=== PATIENT | female | born 1975 | race Caucasian/White ===

== ENCOUNTER 2016-09-22 23:54 | Emergency (ER) | payer OTHER ==
--- NOTE | 2016-09-23 00:24 | ED ---
General Adult HPI - General Chief complaint: Dizziness Stated complaint: feeling faint Time Seen by Provider: 09/23/16 00:23 Source: patient, RN notes reviewed, old records reviewed Mode of arrival: ambulatory Limitations: no limitations - History of Present Illness Initial comments: This is a 41-year-old female to the ER for evaluation of heart racing, flushed skin, palpitations, near syncope. Patient has history of atrial fibrillation, states is different from that event. She had 3 bouts of atrial ablation her life and often contracted either chemically or electrically. At this time patient is relatively symptomatically with some mild chest pain and soreness in the left side of her chest. No significant source of breath no recent diaphoresis cough or congestion. No new medications. No dietary changes weight loss, no recent travel history sick contacts or recent hospital admission. Patient was sitting at a restaurant and she became fifth to feel flushed and feeling her heart rate. - Related Data Home Medications Medication Instructions Recorded Confirmed No Known Home Medications [No 09/23/16 09/23/16 Known Home Medications] Allergies Allergy/AdvReac Type Severity Reaction Status Date / Time prednisone Allergy Rash/Hives Verified 09/23/16 00:07 Review of Systems ROS Statement: Those systems with pertinent positive or pertinent negative responses have been documented in the HPI. ROS Other: All systems not noted in ROS Statement are negative. Past Medical History Past Medical History: Atrial Fibrillation History of Any Multi-Drug Resistant Organisms: None Reported Past Surgical History: Hernia Repair, Hysterectomy, Tonsillectomy Past Psychological History: No Psychological Hx Reported Smoking Status: Current every day smoker Past Alcohol Use History: Occasional Past Drug Use History: None Reported General Exam Limitations: no limitations General appearance: alert, in no apparent distress Head exam: Present: atraumatic, normocephalic, normal inspection Eye exam: Present: normal appearance, PERRL, EOMI. Absent: scleral icterus, conjunctival injection, periorbital swelling ENT exam: Present: normal exam, mucous membranes moist Neck exam: Present: normal inspection. Absent: tenderness, meningismus, lymphadenopathy Respiratory exam: Present: normal lung sounds bilaterally. Absent: respiratory distress, wheezes, rales, rhonchi, stridor Cardiovascular Exam: Present: regular rate, normal rhythm, normal heart sounds. Absent: systolic murmur, diastolic murmur, rubs, gallop, clicks GI/Abdominal exam: Present: soft, normal bowel sounds. Absent: distended, tenderness, guarding, rebound, rigid Extremities exam: Present: normal inspection, full ROM, normal capillary refill. Absent: tenderness, pedal edema, joint swelling, calf tenderness Back exam: Present: normal inspection Neurological exam: Present: alert, oriented X3, CN II-XII intact Psychiatric exam: Present: normal affect, normal mood Skin exam: Present: warm, dry, intact, normal color. Absent: rash Course Vital Signs 09/23/16 00:03 Temperature 98.4 F Pulse Rate 82 Respiratory 18 Rate Blood Pressure 126/70 O2 Sat by Pulse 99 Oximetry - Reevaluation(s) Reevaluation #1: 09/23/16 02:41 Patient denies significant chest pain or shortness of breath at this time and throughout majority of ER stay. Patient does feel anxious about will cause the symptoms EKG Findings - EKG Comments: EKG Findings:: EKG shows normal sinus rhythm rate of 86, VT 150, QRS 84, QTC 4: 30 Medical Decision Making - Medical Decision Making 41 female here with palpitations. Palpitations and then feeling soreness in her chest. Patient without chest pain or shortness of breath no diaphoresis no cardiac risk factors no hypertension or cholesterol no diabetes nonsmoker history of A. fib, EKG is normal rhythm strip is been normal throughout stay. Patient is no chest pain at this point, EKG is normal and troponin is negative - Lab Data Result diagrams: 09/23/16 00:20 09/23/16 00:20 Lab Results 09/23/16 09/23/16 09/23/16 Range/Units 00:20 00:20 00:20 WBC 13.8 H (3.8-10.6) k/uL RBC 4.44 (3.80-5.40) m/uL Hgb 13.9 (11.4-16.0) gm/dL Hct 41.5 (34.0-46.0) % MCV 93.4 (80.0-100.0) fL MCH 31.4 (25.0-35.0) pg MCHC 33.6 (31.0-37.0) g/dL RDW 13.0 (11.5-15.5) % Plt Count 249 (150-450) k/uL Neutrophils % 71 % Lymphocytes % 18 % Monocytes % 5 % Eosinophils % 4 % Basophils % 1 % Neutrophils # 9.8 H (1.3-7.7) k/uL Lymphocytes # 2.4 (1.0-4.8) k/uL Monocytes # 0.7 (0-1.0) k/uL Eosinophils # 0.5 (0-0.7) k/uL Basophils # 0.1 (0-0.2) k/uL PT (9.0-12.0) sec INR (<1.1) APTT (22.0-30.0) sec Sodium 140 (137-145) mmol/L Potassium 4.3 (3.5-5.1) mmol/L Chloride 107 (98-107) mmol/L Carbon Dioxide 20 L (22-30) mmol/L Anion Gap 13 mmol/L BUN 15 (7-17) mg/dL Creatinine 0.70 (0.52-1.04) mg/dL Est GFR (MDRD) Af Amer >60 (>60 ml/min/1.73 sqM) Est GFR (MDRD) Non-Af >60 (>60 ml/min/1.73 sqM) Glucose 107 H (74-99) mg/dL Calcium 10.1 (8.4-10.2) mg/dL Magnesium 1.9 (1.6-2.3) mg/dL Total Bilirubin 0.4 (0.2-1.3) mg/dL AST 23 (14-36) U/L ALT 31 (9-52) U/L Alkaline Phosphatase 67 (38-126) U/L Total Creatine Kinase 87 (30-135) U/L CK-MB (CK-2) 0.5 (0.0-2.4) ng/mL CK-MB (CK-2) Rel Index 0.6 Troponin I <0.012 (0.000-0.034) ng/mL Total Protein 7.8 (6.3-8.2) g/dL Albumin 4.4 (3.5-5.0) g/dL TSH 2.270 (0.465-4.680) mIU/L Urine Color Urine Appearance (Clear) Urine pH (5.0-8.0) Ur Specific [place] (1.001-1.035) Urine Protein (Negative) Urine Glucose (UA) (Negative) Urine Ketones (Negative) Urine Blood (Negative) Urine Nitrite (Negative) Urine Bilirubin (Negative) Urine Urobilinogen (<2.0) mg/dL Ur Leukocyte Esterase (Negative) Urine RBC (0-5) /hpf Urine WBC (0-5) /hpf Ur Squamous Epith Cells (0-4) /hpf Urine Mucus (None) /hpf Urine Opiates Screen (NotDetected) Ur Oxycodone Screen (NotDetected) Urine Methadone Screen (NotDetected) Ur Propoxyphene Screen (NotDetected) Ur Barbiturates Screen (NotDetected) U Tricyclic Antidepress (NotDetected) Ur Phencyclidine Scrn (NotDetected) Ur Amphetamines Screen (NotDetected) U Methamphetamines Scrn (NotDetected) U Benzodiazepines Scrn (NotDetected) Urine Cocaine Screen (NotDetected) U Marijuana (THC) Screen (NotDetected) 09/23/16 09/23/16 Range/Units 00:20 00:52 WBC (3.8-10.6) k/uL RBC (3.80-5.40) m/uL Hgb (11.4-16.0) gm/dL Hct (34.0-46.0) % MCV (80.0-100.0) fL MCH (25.0-35.0) pg MCHC (31.0-37.0) g/dL RDW (11.5-15.5) % Plt Count (150-450) k/uL Neutrophils % % Lymphocytes % % Monocytes % % Eosinophils % % Basophils % % Neutrophils # (1.3-7.7) k/uL Lymphocytes # (1.0-4.8) k/uL Monocytes # (0-1.0) k/uL Eosinophils # (0-0.7) k/uL Basophils # (0-0.2) k/uL PT 10.0 (9.0-12.0) sec INR 1.0 (<1.1) APTT 24.8 (22.0-30.0) sec Sodium (137-145) mmol/L Potassium (3.5-5.1) mmol/L Chloride (98-107) mmol/L Carbon Dioxide (22-30) mmol/L Anion Gap mmol/L BUN (7-17) mg/dL Creatinine (0.52-1.04) mg/dL Est GFR (MDRD) Af Amer (>60 ml/min/1.73 sqM) Est GFR (MDRD) Non-Af (>60 ml/min/1.73 sqM) Glucose (74-99) mg/dL Calcium (8.4-10.2) mg/dL Magnesium (1.6-2.3) mg/dL Total Bilirubin (0.2-1.3) mg/dL AST (14-36) U/L ALT (9-52) U/L Alkaline Phosphatase (38-126) U/L Total Creatine Kinase (30-135) U/L CK-MB (CK-2) (0.0-2.4) ng/mL CK-MB (CK-2) Rel Index Troponin I (0.000-0.034) ng/mL Total Protein (6.3-8.2) g/dL Albumin (3.5-5.0) g/dL TSH (0.465-4.680) mIU/L Urine Color Yellow Urine Appearance Cloudy H (Clear) Urine pH 5.5 (5.0-8.0) Ur Specific [place] 1.030 (1.001-1.035) Urine Protein 1+ H (Negative) Urine Glucose (UA) Negative (Negative) Urine Ketones Trace H (Negative) Urine Blood Trace H (Negative) Urine Nitrite Negative (Negative) Urine Bilirubin Negative (Negative) Urine Urobilinogen <2.0 (<2.0) mg/dL Ur Leukocyte Esterase Negative (Negative) Urine RBC 2 (0-5) /hpf Urine WBC 4 (0-5) /hpf Ur Squamous Epith Cells 7 H (0-4) /hpf Urine Mucus Many H (None) /hpf Urine Opiates Screen Not Detected (NotDetected) Ur Oxycodone Screen Not Detected (NotDetected) Urine Methadone Screen Not Detected (NotDetected) Ur Propoxyphene Screen Not Detected (NotDetected) Ur Barbiturates Screen Not Detected (NotDetected) U Tricyclic Antidepress Detected H (NotDetected) Ur Phencyclidine Scrn Not Detected (NotDetected) Ur Amphetamines Screen Not Detected (NotDetected) U Methamphetamines Scrn Not Detected (NotDetected) U Benzodiazepines Scrn Not Detected (NotDetected) Urine Cocaine Screen Not Detected (NotDetected) U Marijuana (THC) Screen Not Detected (NotDetected) Disposition Clinical Impression: Palpitations, Chest pain, Anxiety Disposition: HOME SELF-CARE Condition: Good Instructions: Palpitations (ED), Chest Pain (ED) Referrals: None,Stated [Primary Care Provider] - 1-2 days
[2016-09-23] MEDS ORDERED: SODIUM CHLORIDE 0.9% 500 ML IV STA (00:36)
[2016-09-23 01:14] LABS: Basophils # (A) 0.1 k/uL (0-0.2); Basophils % (A) 1 %; CH 31.1; CHCM 33.5; Eosinophils # (A) 0.5 k/uL (0-0.7); Eosinophils % (A) 4 %; HCT 41.5 % (34.0-46.0); HDW 2.41; HGB 13.9 gm/dL (11.4-16.0); Luc # (Auto) 0.21; Luc % (Auto) 2; Lymphocytes # (A) 2.4 k/uL (1.0-4.8); Lymphocytes % (A) 18 %; MCH 31.4 pg (25.0-35.0); MCHC 33.6 g/dL (31.0-37.0); MCV 93.4 fL (80.0-100.0); Mean Platelet Volume 8.4; Monocytes # (A) 0.7 k/uL (0-1.0); Monocytes % (A) 5 %; Neutrophils # (A) 9.8 k/uL (1.3-7.7); Neutrophils % (A) 71 %; RBC 4.44 m/uL (3.80-5.40); WBC 13.8 k/uL (3.8-10.6); WBC (Perox) 13.66
[2016-09-23 01:20] LABS: Appearance,Urine Cloudy (Clear); Bilirubin,Urine Negative (Negative); Glucose,Urine (UA) Negative (Negative); Ketones,Urine Trace (Negative); Leukocyte Esterase,Urine Negative (Negative); Mucus,Urine Many /hpf; Nitrite,Urine Negative (Negative); PH, Urine 5.5 (5.0-8.0); Particle Count 20239; Protein,Urine 1+ (Negative); RBC,Urine 2 /hpf (0-5); Squamous Epithelial Cell,Urine 7 /hpf (0-4); UA Billing (MACRO vs. MICRO) MICRO; Urobilinogen,Urine <2.0 mg/dL (<2.0); WBC,Urine 4 /hpf (0-5)
[2016-09-23 01:26] LABS: Partial Thromboplastin Time 24.8 sec (22.0-30.0)
[2016-09-23 01:29] LABS: ALT 31 U/L (9-52); AST 23 U/L (14-36); Alkaline Phosphatase 67 U/L (38-126); Anion Gap 13 mmol/L; Blood Urea Nitrogen 15 mg/dL (7-17); Calcium 10.1 mg/dL (8.4-10.2); Carbon Dioxide 20 mmol/L (22-30); Chloride 107 mmol/L (98-107); Glucose 107 mg/dL (74-99); Magnesium 1.9 mg/dL (1.6-2.3); Non-African American GFR(MDRD) >60 (>60 ml/min/1.73 sqM); Potassium 4.3 mmol/L (3.5-5.1); Sodium 140 mmol/L (137-145); Total Bilirubin 0.4 mg/dL (0.2-1.3); Total Protein 7.8 g/dL (6.3-8.2)
[2016-09-23 01:38] LABS: Creatine Kinase 87 U/L (30-135)
[2016-09-23 01:51] LABS: Creatine Kinase MB 0.5 ng/mL (0.0-2.4); Troponin I <0.012 ng/mL (0.000-0.034)
[2016-09-23] MEDS ORDERED: KETOROLAC 30 MG/ML 1 ML VIAL IVP STA (02:39)
[2016-09-23] MEDS ORDERED: LORazepam 1 MG TAB PO STA (02:39)
[2016-09-23 03:16] VITALS: BP 103/62; PULSE 76; RESP 16; TEMP 97.6
== END 2016-09-23 03:40 | disposition home or self-care (01) ==
LOC: EC 23:54
DX: R00.2 Palpitations (principal); R07.9 Chest pain, unspecified; F41.9 Anxiety disorder, unspecified; R55 Syncope and collapse; R42 Dizziness and giddiness; F17.200 Nicotine dependence, unspecified, uncomplicated; Z86.79 Personal history of other diseases of the circulatory system; Z88.8 Allergy status to other drugs, medicaments and biological substances; Z53.8 Procedure and treatment not carried out for other reasons
CPT/HCPCS: 36415; 80053; 80306; 81001; 82550; 82553; 83735; 84443; 84484; 85025; 85610; 85730; 93005; 96360; 96361; 99284

== ENCOUNTER 2016-09-29 11:20 | Inpatient (IN) | payer OTHER ==
[2016-09-29] MEDS ORDERED: SODIUM CHLORIDE 0.9% 1,000 ML IV STA (11:41)
[2016-09-29] MEDS ORDERED: DILTIAZEM 5 MG/ML 5 ML VIAL IVP STA (11:43)
--- NOTE | 2016-09-29 11:45 | ED ---
General Adult HPI - General Chief complaint: Arrhythmia/Palpitations Stated complaint: rapid heartrate Time Seen by Provider: 09/29/16 11:31 Source: patient, RN notes reviewed, old records reviewed Mode of arrival: ambulatory Limitations: no limitations - History of Present Illness Initial comments: This is a 41-year-old female ER for evaluation of palpitations heart racing shortness of breath. Patient states she does suffer from major fibrillation, states she had a similar episode of this earlier in the week. Denies chest pain , no new medications no change in medications no drugs or alcohol. Patient states she's been checked for thyroid disease and has all been normal. No recent fevers cough or congestion. Symptoms are today, and they have been pretty episodic. She is very symptomatic feeling her heart racing and beating hard in her chest. - Related Data Home Medications Medication Instructions Recorded Confirmed Cold Medication (Unknown Otc) 1 dose PO TID PRN 09/29/16 09/29/16 Mometasone Furoate [Nasonex Nasal 2 spr EA NOSTRIL HS 09/29/16 09/29/16 Altha] Allergies Allergy/AdvReac Type Severity Reaction Status Date / Time prednisone Allergy Rash/Hives Verified 09/29/16 11:46 Review of Systems ROS Statement: Those systems with pertinent positive or pertinent negative responses have been documented in the HPI. ROS Other: All systems not noted in ROS Statement are negative. Past Medical History Past Medical History: Atrial Fibrillation History of Any Multi-Drug Resistant Organisms: None Reported Past Surgical History: Hernia Repair, Hysterectomy, Tonsillectomy Past Psychological History: No Psychological Hx Reported Smoking Status: Current every day smoker Past Alcohol Use History: Occasional Past Drug Use History: None Reported General Exam Limitations: no limitations General appearance: alert, in no apparent distress, anxious Head exam: Present: atraumatic, normocephalic, normal inspection Eye exam: Present: normal appearance, PERRL, EOMI. Absent: scleral icterus, conjunctival injection, periorbital swelling ENT exam: Present: normal exam, mucous membranes moist Neck exam: Present: normal inspection. Absent: tenderness, meningismus, lymphadenopathy Respiratory exam: Present: normal lung sounds bilaterally. Absent: respiratory distress, wheezes, rales, rhonchi, stridor Cardiovascular Exam: Present: tachycardia, irregular rhythm, normal heart sounds. Absent: systolic murmur, diastolic murmur, rubs, gallop, clicks GI/Abdominal exam: Present: soft, normal bowel sounds. Absent: distended, tenderness, guarding, rebound, rigid Extremities exam: Present: normal inspection, full ROM, normal capillary refill. Absent: tenderness, pedal edema, joint swelling, calf tenderness Back exam: Present: normal inspection Neurological exam: Present: alert, oriented X3, CN II-XII intact Psychiatric exam: Present: normal affect, normal mood Skin exam: Present: warm, dry, intact, normal color. 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 fib with RVR rate 121 and QRS 82 QTC 434 Medical Decision Making - Medical Decision Making 41 female at the ER with history of atrial fibrillation, also ablations, now coming in with A. fib with RVR, second episode this week, patient is a chads score negative, will place on aspirin and admitted for rate control and cardiology evaluation - Lab Data Result diagrams: 09/29/16 11:47 Lab Results 09/29/16 Range/Units 11:47 WBC 8.2 (3.8-10.6) k/uL RBC 4.64 (3.80-5.40) m/uL Hgb 14.6 (11.4-16.0) gm/dL Hct 43.4 (34.0-46.0) % MCV 93.4 (80.0-100.0) fL MCH 31.6 (25.0-35.0) pg MCHC 33.8 (31.0-37.0) g/dL RDW 12.9 (11.5-15.5) % Plt Count 274 (150-450) k/uL Neutrophils % 51 % Lymphocytes % 36 % Monocytes % 4 % Eosinophils % 8 % Basophils % 1 % Neutrophils # 4.2 (1.3-7.7) k/uL Lymphocytes # 2.9 (1.0-4.8) k/uL Monocytes # 0.3 (0-1.0) k/uL Eosinophils # 0.6 (0-0.7) k/uL Basophils # 0.1 (0-0.2) k/uL Disposition Clinical Impression: Palpitations, Atrial fibrillation with RVR Disposition: ADMITTED IP TO THIS HOSP Condition: Fair Referrals: None,Stated [Primary Care Provider] - 1-2 days
[2016-09-29 12:04] LABS: Basophils # (A) 0.1 k/uL (0-0.2); Basophils % (A) 1 %; CH 31.5; CHCM 33.9; Eosinophils # (A) 0.6 k/uL (0-0.7); Eosinophils % (A) 8 %; HCT 43.4 % (34.0-46.0); HDW 2.41; HGB 14.6 gm/dL (11.4-16.0); Luc # (Auto) 0.15; Luc % (Auto) 2; Lymphocytes # (A) 2.9 k/uL (1.0-4.8); Lymphocytes % (A) 36 %; MCH 31.6 pg (25.0-35.0); MCHC 33.8 g/dL (31.0-37.0); MCV 93.4 fL (80.0-100.0); Monocytes # (A) 0.3 k/uL (0-1.0); Monocytes % (A) 4 %; Neutrophils # (A) 4.2 k/uL (1.3-7.7); Neutrophils % (A) 51 %; RBC 4.64 m/uL (3.80-5.40); RDW 12.9 % (11.5-15.5); WBC 8.2 k/uL (3.8-10.6); WBC (Perox) 7.82
[2016-09-29] MEDS ORDERED: ASPIRIN 81 MG CHEW PO STA (12:05)
[2016-09-29] MEDS ORDERED: NITROGLYCERIN SL TABS 0.4 MG TAB SUBLINGUAL PRN (12:05)
[2016-09-29] MEDS ORDERED: DILTIAZEM 125 MG in SODIUM CHLORIDE 0.9% 100 ML IV ONE (12:05)
[2016-09-29 12:10] LABS: Partial Thromboplastin Time 23.6 sec (22.0-30.0); Prothrombin Time 10.2 sec (9.0-12.0)
[2016-09-29 12:13] LABS: ALT 37 U/L (9-52); AST 21 U/L (14-36); Alkaline Phosphatase 60 U/L (38-126); Anion Gap 12 mmol/L; Blood Urea Nitrogen 11 mg/dL (7-17); Calcium 9.5 mg/dL (8.4-10.2); Carbon Dioxide 23 mmol/L (22-30); Chloride 107 mmol/L (98-107); Glucose 105 mg/dL (74-99); Magnesium 1.8 mg/dL (1.6-2.3); Non-African American GFR(MDRD) >60 (>60 ml/min/1.73 sqM); Phosphorous 3.4 mg/dL (2.5-4.5); Potassium 4.7 mmol/L (3.5-5.1); Sodium 142 mmol/L (137-145); Total Bilirubin 0.5 mg/dL (0.2-1.3); Total Protein 7.5 g/dL (6.3-8.2)
[2016-09-29 12:24] LABS: Creatine Kinase 62 U/L (30-135)
[2016-09-29 12:36] LABS: Creatine Kinase MB 0.4 ng/mL (0.0-2.4); Troponin I <0.012 ng/mL (0.000-0.034)
[2016-09-29] MEDS: SODIUM CHLORIDE 0.9% 1,000 ML IV SCH (13:39)
[2016-09-29] MEDS ORDERED: HEPARIN SODIUM,PORCINE 5,000 UNIT/ML 1 ML VIAL IV PRN (14:00)
[2016-09-29] MEDS ORDERED: HEPARIN SODIUM,PORCINE/D5W PMX 25,000 UNIT in DEXTROSE/WATER 1 500ML.BAG IV SCH (14:00)
[2016-09-29] MEDS ORDERED: HEPARIN SODIUM,PORCINE 5,000 UNIT/ML 1 ML VIAL IV ONE (14:00)
[2016-09-29 15:05] LABS: Prothrombin Time 10.5 sec (9.0-12.0)
[2016-09-29 17:59] LABS: Creatine Kinase 54 U/L (30-135)
[2016-09-29 18:11] LABS: Creatine Kinase MB 0.3 ng/mL (0.0-2.4); Troponin I <0.012 ng/mL (0.000-0.034)
--- NOTE | 2016-09-29 19:58 | HP ---
DATE OF ADMISSION: 09/29/2016 Patient is a 41-year-old who came in with complaints of palpitations, found to be in atrial fibrillation. Patient was having upper respiratory tract infections, because of which she took nasal decongestant, which she believes may have precipitated her atrial fibrillation; not sure whether the contents of the nasal decongestants are even anticholinergics or ( ) nasal decongestants like Sudafed or ( ) can cause rapid heart rate, which may have precipitated her symptoms. Patient denied any fever or chills. Patient denied any cough, runny nose, dysuria. Patient had a similar episode of paroxysmal atrial fibrillation in the past; did not required any rate control medications at that time. Patient apparently had a normal echocardiogram. Because of the low CHADs-VASC score of 1, patient was asked to take aspirin for stroke prevention. Patient denied any fever or chills, cough, runny nose. REVIEW OF SYSTEMS: CONSTITUTIONAL: No fever, no malaise, no fatigue. HEENT: No recent visual problems or hearing problems. Denied any sore throat. CARDIOVASCULAR: As described in HPI. PULMONARY: No shortness of breath, no cough, no hemoptysis. GASTROINTESTINAL: No diarrhea, no nausea, no vomiting, no abdominal pain. Normoactive bowel sounds. NEUROLOGICAL: No headaches, no weakness, no numbness. HEMATOLOGICAL: Denies any bleeding or petechiae. GENITOURINARY: Denies any burning micturition, frequency, or urgency. MUSCULOSKELETAL/RHEUMATOLOGICAL: Denies any joint pain, swelling, or any muscle pain. ENDOCRINE: Denies any polyuria or polydipsia. The rest of the 14 point review of systems is negative. Home medications include: 1. Mometasone furoate. 2. Cold medications, as mentioned above. ALLERGIES: PREDNISONE, apparently, which I do not believe is a real allergy. Past medical history is significant for: 1. Atrial fibrillation. 2. Paroxysmal atrial fibrillation in the past. 3. Hernia repair. 4. Hysterectomy. 5. Cholecystectomy. 6. Tonsillectomy. SOCIAL HISTORY: Patient does smoke. Denied any alcohol abuse or any drug abuse. FAMILY HISTORY: Denied any family history of hypertension, diabetes mellitus or coronary artery disease. PHYSICAL EXAMINATION: VITAL SIGNS: Temperature 97.6, pulse of 93, respiratory rate of 16. Blood pressure is 105/80. Saturating at 100% on room air. GENERAL: The patient is alert and oriented x3, not in any acute distress. Well developed, well nourished. HEENT: Pupils are round and equally reacting to light. EOMI. No scleral icterus. No conjunctival pallor. Normocephalic, atraumatic. No pharyngeal erythema. No thyromegaly. CARDIOVASCULAR: S1, S2 present. Irregularly irregular rhythm. No murmurs, rubs or gallops appreciated. PULMONARY: Chest is clear to auscultation, no wheezing or crackles. ABDOMEN: Soft, nontender, nondistended, normoactive bowel sounds. No palpable organomegaly. MUSCULOSKELETAL: No joint swelling or deformity. EXTREMITIES: No cyanosis, clubbing, or pedal edema. NEUROLOGICAL: Gross neurological examination did not reveal any focal deficits. SKIN: No rashes. LABORATORY DATA: CBC, CMP essentially within normal limits. ASSESSMENT AND PLAN: 1. Atrial fibrillation with rapid ventricular rate. Patient is at present rate-controlled with Cardizem IV and patient was also given a low dose of metoprolol, which is appropriate, and patient appears to have had normal ejection fraction in the past. I will repeat an echocardiogram. Patient's atrial fibrillation was probably precipitated by nasal decongestant. Antihistamines which have anticholinergic property can precipitate atrial fibrillation as well as nasal decongestants like Sudafed and ( ) can precipitate atrial fibrillation. No other signs or symptoms of infection were appreciated. Patient was started on anticoagulation with heparin. Onset of palpitations and symptoms was yesterday evening, which is over 24 hours. If she does not convert spontaneously, she is on heparin, probably will get a chance to cardiovert her. Patient has history of cardioversion in the past. 2. Rule out congestive heart failure. 3. Nicotine abuse. Counseling was provided. Patient long-term may just need aspirin for stroke prevention.
[2016-09-29] MEDS: METOPROLOL TARTRATE 50 MG TAB PO SCH (20:43)
[2016-09-30] MEDS: SODIUM CHLORIDE 0.9% 1,000 ML IV SCH ×2 (00:08→17:05)
[2016-09-30 00:59] LABS: Creatine Kinase 48 U/L (30-135)
[2016-09-30 01:13] LABS: Creatine Kinase MB <0.2 ng/mL (0.0-2.4); Troponin I <0.012 ng/mL (0.000-0.034)
[2016-09-30 06:38] LABS: Basophils # (A) 0.1 k/uL (0-0.2); Basophils % (A) 1 %; CH 31.5; CHCM 33.1; Eosinophils # (A) 0.5 k/uL (0-0.7); Eosinophils % (A) 7 %; HCT 38.3 % (34.0-46.0); HDW 2.35; HGB 12.2 gm/dL (11.4-16.0); Luc # (Auto) 0.13; Luc % (Auto) 2; Lymphocytes # (A) 3.4 k/uL (1.0-4.8); Lymphocytes % (A) 47 %; MCH 30.4 pg (25.0-35.0); MCHC 31.8 g/dL (31.0-37.0); MCV 95.7 fL (80.0-100.0); Mean Platelet Volume 7.8; Monocytes # (A) 0.3 k/uL (0-1.0); Monocytes % (A) 4 %; Neutrophils # (A) 2.8 k/uL (1.3-7.7); Neutrophils % (A) 39 %; RBC 4.01 m/uL (3.80-5.40); RDW 13.1 % (11.5-15.5); WBC 7.2 k/uL (3.8-10.6); WBC (Perox) 7.25
[2016-09-30 06:56] LABS: Cholesterol 146 mg/dL (<200); HDL Cholesterol 21 mg/dL (40-60)
[2016-09-30 07:12] LABS: Triglycerides 536 mg/dL (<150)
[2016-09-30] MEDS: METOPROLOL TARTRATE 50 MG TAB PO SCH ×2 (07:59→21:16)
[2016-09-30] MEDS ORDERED: ASPIRIN 325 MG TAB PO SCH (09:00)
--- NOTE | 2016-09-30 09:19 | ECHOF ---
Referral Reason:A. Fib MEASUREMENTS -------- HEIGHT: 180.3 cm WEIGHT: 108.0 kg BP: 119/77 IVSd: 1.3 cm (0.6 - 1.1) LVIDd: 3.9 cm (3.9 - 5.3) LVPWd: 1.6 cm (0.6 - 1.1) IVSs: 1.8 cm LVIDs: 2.6 cm LVPWs: 2.2 cm LAESV Index (A-L): 19.01 ml/m Ao Diam: 3.3 cm (2.0 - 3.7) AV Cusp: 2.2 cm (1.5 - 2.6) LA Diam: 3.5 cm (2.7 - 3.8) RAP: 5.00 mmHg RVSP: 23.65 mmHg FINDINGS -------- Atrial fibrillation. This was a technically adequate study. There is moderate concentric left ventricular hypertrophy. Overall left ventricular systolic function is normal with, an EF between 55 - 60 %. The right ventricle is normal in size and function. The left atrium is normal in size. The right atrium is normal in size. The aortic valve is trileaflet, and appears structurally normal. No aortic stenosis or regurgitation. The mitral valve leaflets are mildly thickened. Mild mitral regurgitation is present. Mild tricuspid regurgitation present. The right ventricular systolic pressure, as measured by Doppler, is 23.65mmHg. Pulmonic valve appears structurally normal. The aortic root size is normal. The pericardium is normal. CONCLUSIONS -------- 1. Atrial fibrillation. 2. Mild mitral regurgitation is present. 3. Mild tricuspid regurgitation present. 4. The right ventricular systolic pressure, as measured by Doppler, is 23.65mmHg. 5. Pulmonic valve appears structurally normal. 6. The aortic root size is normal. 7. The pericardium is normal. 8. This was a technically adequate study. 9. There is moderate concentric left ventricular hypertrophy. 10. Overall left ventricular systolic function is normal with, an EF between 55 - 60 %. 11. The right ventricle is normal in size and function. 12. The left atrium is normal in size. 13. The right atrium is normal in size. 14. The aortic valve is trileaflet, and appears structurally normal. No aortic stenosis or regurgitation. 15. The mitral valve leaflets are mildly thickened. [employer] RESERVES: Blanche Damon RDCS
--- NOTE | 2016-09-30 09:23 | P.CRDCN ---
<Gricel Tabor E - Last Filed: 09/30/16 09:10> History of Present Illness Consult date: 09/30/16 Requesting physician: Marco Harmon Consult reason: atrial fibrillation Chief complaint: Palpitations History of present illness: This is a 41-year-old female with history of paroxysmal atrial fibrillation, cardiac risk factors negative for hypertension, no diabetes, no hyperlipidemia, she does smoke cigarettes, rarely drinks alcohol, no caffeine. She presents to the hospital with symptoms of palpitations and feeling her heart racing. The patient was in the hospital one week ago with symptoms of palpitations, however on arrival they seemed to dissipate and she was in normal sinus rhythm. On this admission EKG shows A. fib with a rapid ventricular response. Patient remains in atrial fibrillation, rate in the 70s this morning. Currently on Cardizem drip at 5 along with a heparin drip. Patient was also initiated on metoprolol tartrate 50 twice a day in the emergency room. Blood pressure on arrival 140/80 with a heart rate of 130. The pressure this morning 118/70. According to the patient, she has had upper respiratory issues and congestion for the past one week or so and has been taking cold medication at home. She states that the last episode of atrial fibrillation she had was approximately one year ago, she was at [facility] at that time, seen by Dr. Barlow. She had also been taking cold medication at that time prior to her admission there. Patient did undergo cardioversion at that time. She did not follow-up in the cardiology office. Laboratory data, CBC normal, potassium 4.7, BUN 11, creatinine 0.6. Troponins have been negative 3. TSH 1.7. Cholesterol 146, triglycerides 536, HDL 21. Past Medical History Past Medical History: Atrial Fibrillation Additional Past Medical History / Comment(s): Paroxysmal Afib, pt has a had cold and has been using cold medications. History of Any Multi-Drug Resistant Organisms: None Reported Past Surgical History: Hernia Repair, Hysterectomy, Tonsillectomy Additional Past Surgical History / Comment(s): R inguinal hernia repair Past Anesthesia/Blood Transfusion Reactions: Postoperative Nausea & Vomiting ( PONV) Additional Past Anesthesia/Blood Transfusion Reaction / Comment(s): Pt received blood with her hysterectomy Past Psychological History: Anxiety Additional Psychological History / Comment(s): Pt resides with her spouse and 2 children-one is 14 yrs old and one is 21yrs old. She is independent. Smoking Status: Current every day smoker Past Alcohol Use History: Rare Additional Past Alcohol Use History / Comment(s): Pt started smoking in 1992 and is less than a ppd smoker. Past Drug Use History: None Reported - Past Family History Father Family Medical History: No Reported History Additional Family Medical History / Comment(s): Healthy Mother Family Medical History: No Reported History Additional Family Medical History / Comment(s): Healthy Medications and Allergies Home Medications Medication Instructions Recorded Confirmed Type Cold Medication (Unknown Otc) 1 dose PO TID PRN 09/29/16 09/29/16 History Mometasone Furoate [Nasonex Nasal 2 spr EA NOSTRIL HS 09/29/16 09/29/16 History Bronson] Allergies Allergy/AdvReac Type Severity Reaction Status Date / Time prednisone Allergy Rash/Hives Verified 09/29/16 11:46 Physical Exam Vitals: Vital Signs Temp Pulse Pulse Resp BP BP Pulse Ox 09/30/16 08:00 97.5 F L 82 16 118/72 100 09/30/16 03:53 67 09/30/16 03:51 97.8 F 67 16 97/58 97 09/30/16 00:00 66 16 107/67 94 L 09/29/16 20:00 80 16 114/80 98 09/29/16 17:00 87 16 09/29/16 14:49 97.6 F 87 16 100/76 100 09/29/16 13:15 97.3 F L 85 16 119/77 99 09/29/16 12:55 93 18 105/80 98 09/29/16 12:45 76 18 103/85 97 09/29/16 12:26 80 16 108/72 99 Intake and Output 09/29/16 09/30/16 09/30/16 22:59 06:59 14:59 Intake Total 440 612.456 240 Balance 440 612.456 240 Intake: Intake, IV Titration 362.456 Amount Heparin Sodium,Porcine/ 362.456 D5w Pmx 25,000 unit In Dextrose/Water 1 500ml. bag @ 9.3 UNITS/KG/HR 20. 07 mls/hr IV .Q24H [facility] Rx #:[id number] Oral 440 250 240 Other: # Voids 1 Weight 108.6 kg PHYSICAL EXAMINATION: HEENT: Head is atraumatic, normocephalic. Pupils equal, round. Neck is supple. There is no elevated jugular venous pressure. HEART EXAMINATION: Heart S1 and S2 irregularly irregular CHEST EXAMINATION: Lungs are clear to auscultation and precussion. No chest wall tenderness is noted on palpation or with deep breathing. ABDOMEN: Soft, nontender. Bowel sounds are heard. No organomegaly noted. EXTREMITIES: 2+ peripheral pulses with no evidence of peripheral edema and no calf tenderness noted. NEUROLOGIC patient is awake, alert and oriented -3. . Results 09/30/16 06:18 09/29/16 11:47 Cardiac Enzymes 09/29/16 09/30/16 Range/Units 17:10 00:18 CK-MB (CK-2) 0.3 <0.2 (0.0-2.4) ng/mL Troponin I <0.012 <0.012 (0.000-0.034) ng/mL Coagulation 09/29/16 09/29/16 09/30/16 Range/Units 14:32 21:05 06:18 PT 10.5 (9.0-12.0) sec APTT 24.0 30.6 H 40.8 H (22.0-30.0) sec Lipids 09/30/16 Range/Units 06:18 Triglycerides 536 H (<150) mg/dL Cholesterol 146 (<200) mg/dL HDL Cholesterol 21 L (40-60) mg/dL CBC 09/30/16 Range/Units 06:18 WBC 7.2 (3.8-10.6) k/uL RBC 4.01 (3.80-5.40) m/uL Hgb 12.2 (11.4-16.0) gm/dL Hct 38.3 (34.0-46.0) % Plt Count 191 (150-450) k/uL Current Medications Generic Name Dose Route Start Last Admin Trade Name Freq PRN Reason Stop Dose Admin Aspirin 325 mg 09/30/16 09:00 09/30/16 07:59 Aspirin PO 325 mg DAILY SAURABH Administration Heparin Sodium (Porcine) 0 unit 09/29/16 14:00 Heparin IV PER PROTOCOL PRN Low PTT Protocol Diltiazem HCl 125 mg/ Sodium 125 mls @ 5 mls/hr 09/29/16 12:05 09/29/16 12:18 Chloride IV 09/30/16 12:04 5 mg/hr .Q24H ONE 5 mls/hr 5 MG/HR Administration Sodium Chloride 1,000 mls @ 100 mls/hr 09/29/16 12:15 09/30/16 00:08 Saline 0.9% IV Not Given .Q10H [facility] Heparin Sodium/Dextrose 25,000 500 mls @ 20.07 mls/hr 09/29/16 14:00 06:59 unit/ IV Solution IV 14.3 units/kg/hr .Q24H [facility] 30.87 mls/hr Protocol Titration 9.3 UNITS/KG/HR Metoprolol Tartrate 50 mg 09/29/16 21:00 09/30/16 07:59 Lopressor PO 50 mg BID SAURABH Administration Nitroglycerin 0.4 mg 09/29/16 12:05 Nitrostat SUBLINGUAL Q5M PRN Chest Pain Intake and Output 09/29/16 09/30/16 09/30/16 22:59 06:59 14:59 Intake Total 440 612.456 240 Balance 440 612.456 240 Intake: Intake, IV Titration 362.456 Amount Heparin Sodium,Porcine/ 362.456 D5w Pmx 25,000 unit In Dextrose/Water 1 500ml. bag @ 9.3 UNITS/KG/HR 20. 07 mls/hr IV .Q24H [facility] Rx #:[id number] Oral 440 250 240 Other: # Voids 1 Weight 108.6 kg 09/30/16 06:18 EKG Interpretations (text) Atrial fibrillation with rapid ventricular response Assessment and Plan Plan: Assessment and plan #1 atrial fibrillation with rapid ventricular response, paroxysmal. Currently on IV heparin and Cardizem drip. Tsh normal #2 history of paroxysmal atrial fibrillation #3 nicotine dependence Plan We will obtain an echocardiogram with Doppler study. Discontinue IV Cardizem and continue metoprolol tartrate. Further recommendations to follow. DNP note has been reviewed, I agree with a documented findings and plan of care. Patient was seen and examined. <Jay Wallace - Last Filed: 10/01/16 10:06> Physical Exam Vitals: Vital Signs Temp Pulse Resp BP Pulse Ox 10/01/16 08:00 77 18 131/62 97 10/01/16 04:00 97.4 F L 78 16 123/64 97 10/01/16 00:00 79 16 120/64 98 09/30/16 20:00 98 F 70 18 122/64 99 09/30/16 16:00 97.5 F L 62 18 111/72 99 09/30/16 11:52 97.4 F L 68 16 112/64 100 Intake and Output 09/30/16 10/01/16 10/01/16 22:59 06:59 14:59 Other: # Voids 1 1 # Bowel Movements 0 Weight 106.8 kg Results 10/01/16 05:47 09/29/16 11:47 Coagulation 09/30/16 Range/Units 12:44 APTT 53.6 H (22.0-30.0) sec CBC 10/01/16 Range/Units 05:47 WBC 7.5 (3.8-10.6) k/uL RBC 4.01 (3.80-5.40) m/uL Hgb 12.2 (11.4-16.0) gm/dL Hct 37.9 (34.0-46.0) % Plt Count 215 (150-450) k/uL Current Medications Generic Name Dose Route Start Last Admin Trade Name Freq PRN Reason Stop Dose Admin Apixaban 5 mg 09/30/16 10:15 10/01/16 08:07 Eliquis PO 5 mg BID SAURABH Administration Flecainide Acetate 100 mg 09/30/16 21:00 10/01/16 08:07 Tambocor PO 100 mg Q12HR [facility] Administration Metoprolol Tartrate 50 mg 09/29/16 21:00 10/01/16 08:07 Lopressor PO 50 mg BID SA[facility] Administration Nitroglycerin 0.4 mg 09/29/16 12:05 Nitrostat SUBLINGUAL Q5M PRN Chest Pain Zolpidem Tartrate 5 mg 09/30/16 22:26 09/30/16 23:26 Ambien PO 5 mg HS PRN Administration Insomnia Intake and Output 09/30/16 10/01/16 10/01/16 22:59 06:59 14:59 Other: # Voids 1 1 # Bowel Movements 0 Weight 106.8 kg 10/01/16 05:47
[2016-09-30] MEDS ORDERED: FLECAINIDE 50 MG TAB PO STA (10:07)
[2016-09-30] MEDS: APIXABAN 5 MG TAB PO SCH ×2 (10:26→21:16)
[2016-09-30] MEDS: FLECAINIDE 50 MG TAB PO SCH (21:15)
[2016-09-30] MEDS ORDERED: ZOLPIDEM 5 MG TAB PO PRN (22:26)
[2016-10-01 06:11] LABS: Basophils # (A) 0.1 k/uL (0-0.2); Basophils % (A) 1 %; CH 31.2; CHCM 33.3; Eosinophils # (A) 0.5 k/uL (0-0.7); Eosinophils % (A) 7 %; HCT 37.9 % (34.0-46.0); HGB 12.2 gm/dL (11.4-16.0); Luc # (Auto) 0.16; Luc % (Auto) 2; Lymphocytes # (A) 2.8 k/uL (1.0-4.8); Lymphocytes % (A) 37 %; MCH 30.3 pg (25.0-35.0); MCHC 32.2 g/dL (31.0-37.0); MCV 94.3 fL (80.0-100.0); Mean Platelet Volume 7.8; Monocytes # (A) 0.3 k/uL (0-1.0); Monocytes % (A) 4 %; Neutrophils # (A) 3.7 k/uL (1.3-7.7); Neutrophils % (A) 50 %; RBC 4.01 m/uL (3.80-5.40); RDW 12.7 % (11.5-15.5); WBC 7.5 k/uL (3.8-10.6); WBC (Perox) 7.74
[2016-10-01] MEDS: METOPROLOL TARTRATE 50 MG TAB PO SCH (08:07)
[2016-10-01] MEDS: FLECAINIDE 50 MG TAB PO SCH (08:07)
[2016-10-01] MEDS: APIXABAN 5 MG TAB PO SCH (08:07)
[2016-10-01] MEDS ORDERED: ASPIRIN 81 MG CHEW PO SCH (09:00)
[2016-10-01] MEDS ORDERED: LIDOCAINE 1% INJ 10MG/ML (20 ML MDV) ONE (10:01)
[2016-10-01] MEDS ORDERED: PROPOFOL 10 MG/ML 20 ML VIAL IV ONE (10:01)
--- NOTE | 2016-10-01 10:06 | P.PCN ---
Preoperative Diagnosis: Diagnosis Atrial fibrillation, recurrent, fourth recurrence, drug refractory Failed flecainide 200 mg followed by 100 mg twice a day Patient anticoagulated with heparin and then subsequently ELIQUIS 5 mg twice daily Onset of A. fib was within 24-48 hours of admission, symptomatic with shortness of breath dizziness and palpitations Procedure Electrical cardioversion Details 200 J biphasic shock, AP configuration, successful at the first attempt Sinus rhythm in the 70s Plan Twelve-lead ECG Continue flecainide 100 mg twice daily for about 1 week Continue metoprolol 25 mg twice daily for one week Continue ELIQUIS for 4 weeks, then may stop Outpatient sleep apnea assessment Weight reduction Twelve-lead ECG next week on flecainide I plan to start flecainide and metoprolol This is her fourth recurrence If she continues to have this and since she did not chemically convert with flecainide, I may consider cryoablation Anesthesia: MAC
--- NOTE | 2016-10-01 10:09 | P.PN ---
Progress Note - Text Patient interviewed and examined on September 30 please see the full dictation by Dr. ramirez Patient admitted with shortness of breath and palpitations and was found to be in atrial fibrillation with RVR She recently had a cold and took some cold medications This is her fourth recurrence, typical pattern Her first episode of atrial fibrillation was when she was about 29-30 years old Her grandmother had recurrent palpitations no other family member has had recurrent palpitations She denies diabetes hypertension dyslipidemia Sleep apnea assessment pending She is obese Denies any significant alcohol consumption Plan Chemical cardioversion with flecainide 200 mg followed by 100 mg twice a day Initiate ELIQUIS 5 mg twice daily and stop heparin later Once she weekly converts ELIQUIS must be continued for at least 1 month and then stop JAIMIE VASC score is 1 at this time
[2016-10-01] MEDS ORDERED: SODIUM CHLORIDE 0.9% 500 ML IV ONE (10:11)
[2016-10-01 10:15] VITALS: TEMP 98
[2016-10-01 10:32] VITALS: PULSE 67
[2016-10-01 11:22] VITALS: BP 106/60; RESP 18
--- NOTE | 2016-10-01 12:17 | DS ---
DATE OF ADMISSION: 09/29/2016 DATE OF DISCHARGE: Patient is a 41-year-old admitted to the hospital with atrial fibrillation with rapid ventricular rate which improved at this point of time. The patient was started on Flecainide and patient is still in A. fib but rate controlled at this point of time. Cardiology is recommending one more day of monitoring. REVIEW OF SYSTEMS: CARDIOVASCULAR: No chest pain, no orthopnea, no PND, no palpitations. PULMONARY: Denied any shortness of breath. No cough or hemoptysis. GASTROINTESTINAL: No diarrhea, nausea or vomiting. No abdominal pain. Normoactive bowel sounds. NEUROLOGIC: No headaches, no weakness, no numbness. Medications are reviewed. PHYSICAL EXAMINATION: Temperature 97.4, pulse of 68, respiratory rate of 16, blood pressure is 112/64. Saturating at 100% on room air. GENERAL: The patient is alert and oriented x3, not in any acute distress. Well developed, well nourished. HEENT: Pupils are round and equally reacting to light. EOMI. No scleral icterus. No conjunctival pallor. Normocephalic, atraumatic. No pharyngeal erythema. No thyromegaly. CARDIOVASCULAR: S1 and S2 present. Irregularly irregular rhythm. PULMONARY: Chest is clear to auscultation, no wheezing or crackles. ABDOMEN: Soft, nontender, nondistended, normoactive bowel sounds. No palpable organomegaly. MUSCULOSKELETAL: No joint swelling or deformity. EXTREMITIES: No cyanosis, clubbing, or pedal edema. NEUROLOGICAL: Gross neurological examination did not reveal any focal deficits. SKIN: No rashes. LABORATORY DATA: None available from today except for APTT which is 53.6. ASSESSMENT AND PLAN: 1. Atrial fibrillation, rate controlled not in sinus rhythm yet. If she does not convert on Flecainide, cardiology is planning on cardioversion tomorrow. 2. Nicotine abuse. Counseling was provided. 3. Rule out congestive heart failure. Patient is otherwise clinically doing well and patient atrial fibrillation was most probably precipitated by nasal decongestants.
--- NOTE | 2016-10-02 10:44 | DS ---
DATE OF ADMISSION: 09/29/2016 DATE OF DISCHARGE: 10/01/2016 Patient is a 41-year-old who came in for atrial fibrillation with rapid ventricular rate. Post nasal decongestant usage. Patient underwent chemical cardioversion. Patient will need one month of anticoagulation. Patient is being discharged. The patient is being discharged on Flecainide, metoprolol and patient will follow with Dr. Wallace as an outpatient for EP study and possible ablation. Patient was seen and examined on the day of discharge. Vitals are stable. PHYSICAL EXAMINATION: GENERAL: The patient is alert and oriented x3, not in any acute distress. Well developed, well nourished. HEENT: Pupils are round and equally reacting to light. EOMI. No scleral icterus. No conjunctival pallor. Normocephalic, atraumatic. No pharyngeal erythema. No thyromegaly. CARDIOVASCULAR: S1 and S2 present. No murmurs, rubs, or gallops. PULMONARY: Chest is clear to auscultation, no wheezing or crackles. ABDOMEN: Soft, nontender, nondistended, normoactive bowel sounds. No palpable organomegaly. MUSCULOSKELETAL: No joint swelling or deformity. EXTREMITIES: No cyanosis, clubbing, or pedal edema. NEUROLOGICAL: Gross neurological examination did not reveal any focal deficits. SKIN: No rashes. FINAL DIAGNOSIS(ES): 1. Atrial fibrillation, status post chemical cardioversion. 2. Nicotine abuse. 3. Rule out congestive heart failure. Patient will be discharged today in stable medical condition to home. The patient will follow with his primary care physician in 3 to 7 days and the patient will follow with Dr. Wallace as scheduled. Discharge diet: Cardiac. Spent greater than 35 minutes in total discharge process.
== END 2016-10-01 15:14 | disposition home or self-care (01) | DRG 310 ==
LOC: EC 11:20 → 6SEL 12:05
PROVIDERS: ADMIT Hospitalist; ATTEND Hospitalist
PROC: 5A2204Z Restoration of Cardiac Rhythm, Single (ICD-10-PCS; principal; 2016-10-01 09:23)
DX: I48.0 Paroxysmal atrial fibrillation (principal); I50.9 Heart failure, unspecified; E66.9 Obesity, unspecified; F17.200 Nicotine dependence, unspecified, uncomplicated; F41.9 Anxiety disorder, unspecified; Z68.31 Body mass index [BMI] 31.0-31.9, adult; Z88.8 Allergy status to other drugs, medicaments and biological substances
CPT/HCPCS: 36415; 80053; 80061; 82550; 82553; 83735; 84100; 84443; 84484; 85025; 85610; 85730; 92960; 93005; 93306; 96361; 96374; 99285

== ENCOUNTER → 2017-06-25 | Outpatient (CLI) | payer OTHER ==
[2017-06-25 12:41] LABS: Potassium 4.2 mmol/L (3.5-5.1)
== END | disposition home or self-care (01) ==
LOC: LABWHC1 12:10 → LABPAT 12:10
PROVIDERS: ATTEND Anesthesiology
DX: Z01.818 Encounter for other preprocedural examination (principal)
CPT/HCPCS: 36415; 80051

== ENCOUNTER 2017-06-29 09:30 | Inpatient (IN) | payer OTHER ==
[2017-06-21 16:41] VITALS: BMI 33.2
--- NOTE | 2017-06-28 12:38 | P.GSHP ---
History of Present Illness H&P Date: 06/28/17 Chief Complaint: Incisional hernia Patient seen in the office in mid April. She has a history of prior hysterectomy through a lower midline incision. Recently she has appreciated increased swelling in the right lower abdomen. This is been increasing over the last year or so. Mild pain at times. Denies nausea or vomiting. She also has a history of a previous open right hernia repair as a child. CAT scan showed multiple hernias through the lower midline scar site. Hernias present in the periumbilical and infraumbilical location. She also has an enlarging sebaceous cyst in the left midabdomen. No change in bowel habits despite the fact the bowel loops are present within the hernia. Past Medical History Past Medical History: Atrial Fibrillation, Thyroid Disorder Additional Past Medical History / Comment(s): Paroxysmal Afib., Varicose Veins, Hypothyroid, Incisional Hernia. History of Any Multi-Drug Resistant Organisms: None Reported Past Surgical History: Hernia Repair, Hysterectomy, Tonsillectomy Additional Past Surgical History / Comment(s): Right inguinal hernia repair, Cardioversion. Past Anesthesia/Blood Transfusion Reactions: Postoperative Nausea & Vomiting ( PONV) Additional Past Anesthesia/Blood Transfusion Reaction / Comment(s): Pt received blood with her hysterectomy- no reaction Past Psychological History: Anxiety Additional Psychological History / Comment(s): . Smoking Status: Former smoker Past Alcohol Use History: None Reported Additional Past Alcohol Use History / Comment(s): QUIT SMOKING 6 MONTHS AGO., STARTED SMOKING 1992 AND SMOKED ON AND OFF FOR 24 YEARS. SMOKED 1/2-1 PPD. Past Drug Use History: None Reported - Past Family History Father Family Medical History: No Reported History Additional Family Medical History / Comment(s): . Mother Family Medical History: No Reported History Additional Family Medical History / Comment(s): . Medications and Allergies Home Medications Medication Instructions Recorded Confirmed Type Ibuprofen [Motrin] 200 - 400 mg PO Q6HR PRN 06/21/17 06/21/17 History LORazepam [Ativan] 0.5 mg PO DAILY PRN 06/21/17 06/21/17 History Levothyroxine Sodium [Synthroid] 50 mcg PO DAILY 06/21/17 06/21/17 History Allergies Allergy/AdvReac Type Severity Reaction Status Date / Time prednisone Allergy Rash/Hives Verified 06/21/17 13:26 Surgical - Exam Physical exam: General: Well-developed, well-nourished HEENT: Normocephalic, sclerae nonicteric Abdomen: Nontender, nondistended, large hernia in the lower midline extending to the right lower quadrant, prior scars noted, periumbilical hernia nonpalpable Extremities: No edema Neuro: Alert and oriented Assessment and Plan (1) Incisional hernia Narrative/Plan: Will proceed with repair of large incisional hernia with mesh. Open approach was chosen because of the degree of fascial separation. Risks of bleeding, infection, recurrence, bladder and bowel injury, numbness, nerve injury, anesthesia related complications were discussed with the patient. The patient understands and wishes to proceed. Status: Acute Code(s): K43.2 - INCISIONAL HERNIA WITHOUT OBSTRUCTION OR GANGRENE SNOMED Code(s): 978562697
[~2017-06-29 09:30] MED LIST: HEPARIN SODIUM,PORCINE 5,000 UNIT/ML 1 ML VIAL SQ ONE; MIDAZOLAM 2 MG/2 ML VIAL IV PRN; MORPHINE SULFATE 4 MG/ML SYRINGE IV PRN; ONDANSETRON 4 MG/2 ML VIAL IVP ONE; SCOPOLAMINE 1.5MG/72HR PATCH TRANSDERM ONE; ceFAZolin IN SWFI 2 GM/20 ML SYRINGE IVP ONE
[2017-06-29] MEDS: LACTATED RINGERS 1,000 ML IV SCH (10:34)
[2017-06-29] MEDS ORDERED: LIDOCAINE 1% 20 ML VIAL (10MG/ML) FOR IV START INTRADERMA ONE (10:34)
[2017-06-29] MEDS ORDERED: VECURONIUM 10 MG VIAL IV ONE (11:22)
[2017-06-29] MEDS ORDERED: MIDAZOLAM 2 MG/2 ML VIAL ONE (11:22)
[2017-06-29] MEDS ORDERED: GLYCOPYRROLATE 0.2 MG/ML 2 ML VIAL ONE (11:22)
[2017-06-29] MEDS ORDERED: NEOSTIGMINE 1 MG/ML 10 ML VIAL ONE (11:22)
[2017-06-29] MEDS ORDERED: fentaNYL (PF) 50 MCG/ML 2 ML AMP ONE (11:22)
[2017-06-29] MEDS ORDERED: LIDOCAINE 1% INJ 10MG/ML (20 ML MDV) ONE (11:22)
[2017-06-29] MEDS ORDERED: SUCCINYLCHOLINE CHLORIDE 100 MG/5 ML SYR IV ONE (11:22)
[2017-06-29] MEDS ORDERED: PROPOFOL 10 MG/ML 20 ML VIAL IV ONE (11:22)
[2017-06-29] MEDS ORDERED: HYDROmorphone (PF) 1 MG/ML ONE (11:22)
[2017-06-29] MEDS ORDERED: BUPIVACAINE (PF) 0.25% 30 ML VIAL SQ ONE (11:46)
[2017-06-29] MEDS ORDERED: LACTATED RINGERS 1,000 ML IV ONE ×2 (12:32→15:02)
[2017-06-29] MEDS ORDERED: HYDROmorphone 4 MG/ML 1 ML SYRINGE IVP ONE ×3 (14:43→15:35)
[2017-06-29] MEDS ORDERED: NALOXONE 0.4 MG/ML 1 ML VIAL IV PRN (14:46)
--- NOTE | 2017-06-29 14:55 | P.OP ---
Date of Procedure: 06/29/17 Procedure(s) Performed: PREOPERATIVE DIAGNOSIS: Incisional hernia 2 incarcerated POSTOPERATIVE DIAGNOSIS: Same PROCEDURE: Incisional hernia repair 2 SURGEON: Maryan EBL: Minimal see anesthesia records ANESTHESIA: General COMPLICATIONS: None OPERATIVE PROCEDURE: Patient was placed in the operating room table in the supine position. The patient was placed under general anesthesia. A Jacobs catheter was placed. The abdomen was prepped and draped in usual sterile fashion. The previous incision was opened initially inferiorly however this was later extended to the previous scar site above the umbilicus. Dissection through the subcutaneous fat took place using electrocautery. The patient had a large hernia present in the lower abdomen extending from the pubic tubercle proximally. The hernia sac was carefully dissected and eventually excised. The defect in the fascia measured 10 cm in length by approximately 7 cm in width. There were some adhesions between the omentum and the hernia sac. These were lysed. I was able to palpate the superior fascial defect. This was present just above the umbilicus. This hernia sac was likewise excised. This defect measured 4 x 3 cm in diameter. I decided to address this defect first. The fish bowel protector was utilized. A ventral X ST mesh was placed beneath the fascial defect and sutured to the fascia using interrupted 2-0 Nurolon trans -fascial sutures circumferentially. The defect was then closed horizontally using [id number] 0 Ethibond sutures. The undersurface of the mesh was palpated after it was completely sewn in place and there were no adhesions to the bowel or omentum. The preperitoneal space in the lower abdomen was fully dissected using a combination of blunt dissection and electrocautery. The course of both right and left inferior epigastric vessels were seen and preserved. A 11 x 14 cm Ventrio mesh was placed in the preperitoneal space. This was then also sutured in place using trans-fascial 0 Ethibond sutures circumferentially. The midline fascia was then reapproximated using a interrupted 0 Ethibond sutures in a [id number] fashion. It should be noted that the defect in the peritoneum had been closed using a running locking 2-0 Vicryl stitch prior to the placement of the preperitoneal mesh. The operative site was then fully irrigated. Small areas of bleeding were controlled using electrocautery. 2 drains were utilized one exiting from the right lower abdomen and one from the left midabdomen. This was sutured in place using 2-0 silk sutures. The subcutaneous tissues were closed using a combination of 30 and 2-0 Vicryl sutures. The skin was closed using major. A sterile dressing was applied. DISPOSITION: Stable to recovery room
[2017-06-29] MEDS: HEPARIN SODIUM,PORCINE 5,000 UNIT/ML 1 ML VIAL SQ SCH ×2 (17:03→23:21)
[2017-06-29] MEDS: traMADol 50 MG TAB PO PRN (17:05)
[2017-06-29] MEDS: D5-0.45% NACL WITH KCL 20MEQ/L 1,000 ML IV SCH (19:34)
[2017-06-29] MEDS: ONDANSETRON 4 MG/2 ML VIAL IVP PRN (19:34)
[2017-06-29] MEDS: HYDROcodone/APAP 5-325MG 1 EACH TAB PO PRN ×2 (19:34→23:18)
[2017-06-29] MEDS: DOCUSATE 100 MG CAP PO SCH (19:34)
[2017-06-30] MEDS: traMADol 50 MG TAB PO PRN ×2 (00:51→12:10)
[2017-06-30 02:08] VITALS: RESP 16
[2017-06-30] MEDS: HYDROcodone/APAP 5-325MG 1 EACH TAB PO PRN ×2 (03:01→09:10)
[2017-06-30] MEDS: D5-0.45% NACL WITH KCL 20MEQ/L 1,000 ML IV SCH ×4 (03:05→23:15)
[2017-06-30] MEDS: HYDROmorphone 2 MG/ML 1 ML SYRINGE IVP PRN ×2 (04:37→13:07)
[2017-06-30] MEDS: LACTATED RINGERS 1,000 ML IV SCH (06:21)
[2017-06-30 07:14] LABS: Basophils % (A) 0 %; Eosinophils # (A) 0.2 k/uL (0-0.7); Eosinophils % (A) 2 %; HCT 35.8 % (34.0-46.0); HGB 11.7 gm/dL (11.4-16.0); Lymphocytes # (A) 1.7 k/uL (1.0-4.8); Lymphocytes % (A) 18 %; MCH 29.9 pg (25.0-35.0); MCHC 32.6 g/dL (31.0-37.0); MCV 91.8 fL (80.0-100.0); Mean Platelet Volume 8.4; Monocytes # (A) 0.4 k/uL (0-1.0); Monocytes % (A) 4 %; Neutrophils # (A) 7.4 k/uL (1.3-7.7); Neutrophils % (A) 76 %; Platelet Count 229 k/uL (150-450); RDW 13.2 % (11.5-15.5); WBC 9.9 k/uL (3.8-10.6)
[2017-06-30 07:37] LABS: Anion Gap 8 mmol/L; Blood Urea Nitrogen 7 mg/dL (7-17); Carbon Dioxide 27 mmol/L (22-30); Chloride 104 mmol/L (98-107); Glucose 115 mg/dL (74-99); Magnesium 1.7 mg/dL (1.6-2.3); Phosphorus 3.6 mg/dL (2.5-4.5); Potassium 4.3 mmol/L (3.5-5.1); Sodium 139 mmol/L (137-145)
[2017-06-30] MEDS: DOCUSATE 100 MG CAP PO SCH ×2 (08:44→19:39)
[2017-06-30] MEDS: HEPARIN SODIUM,PORCINE 5,000 UNIT/ML 1 ML VIAL SQ SCH ×3 (08:44→23:09)
[2017-06-30] MEDS: PANTOPRAZOLE 40 MG/10 ML VIAL IV SCH (08:45)
--- NOTE | 2017-06-30 11:55 | P.PN ---
Subjective Progress Note Date: 06/30/17 Principal diagnosis: Incisional hernia Patient doing well today. Mild abdominal discomfort. White blood cell count 9.9. Hemoglobin 11.7. Tolerating small amounts of liquids. Pain controlled with Dilaudid. VISH drain serosanguineous. Objective - Vital Signs Vital signs: Vital Signs Temp 98.0 F 06/30/17 08:00 Pulse 81 06/30/17 08:00 Resp 16 06/30/17 08:00 BP 115/68 06/30/17 08:00 Pulse Ox 96 06/30/17 08:00 Intake & Output 06/29/17 06/30/17 06/30/17 18:59 06:59 18:59 Intake Total 2200 837.5 Output Total 265 1475 30 Balance 1935 -637.5 -30 Weight 111.13 kg Intake: IV 2200 Intake, IV Titration 437.5 Amount D5-0.45% NaCl with KCl 437.5 20Meq/l 1,000 ml @ 125 mls/hr IV .Q8H [facility] Rx#: [id number] Oral 400 Output: Drainage 50 50 30 Left 10 20 10 Right 40 30 20 Urine 175 1425 Uretheral (Jacobs) 650 Estimated Blood Loss 40 Other: Voiding Method Indwelling Catheter Indwelling Catheter Indwelling Catheter - Exam Abdomen: Soft, nondistended, dressing intact, drains intact, mild tenderness - Labs CBC & Chem 7: 06/30/17 06:40 06/30/17 06:40 Labs: Abnormal Lab Results - Last 24 Hours (Table) 06/30/17 Range/Units 06:40 Glucose 115 H (74-99) mg/dL Assessment and Plan (1) Incisional hernia Narrative/Plan: Advance diet. Add Toradol. Gradually increase activity. Current Visit: Yes Status: Acute Code(s): K43.2 - INCISIONAL HERNIA WITHOUT OBSTRUCTION OR GANGRENE SNOMED Code(s): 629170987
[2017-06-30] MEDS: KETOROLAC 30 MG/ML 1 ML VIAL IVP SCH ×3 (13:08→23:11)
[2017-06-30] MEDS ORDERED: LORazepam 0.5 MG TAB PO PRN (13:29)
--- NOTE | 2017-06-30 13:29 | P.CONS ---
History of Present Illness - Reason for Consult Consult date: 06/30/17 Medical management of hypothyroidism Requesting physician: Sebastian Steinberg - History of Present Illness this is a pleasant 42-year-old white female. She underwent a hysterectomy in the remote past. She reports increasing swelling in the right lower quadrant and the abdomen. She was seen by Dr. Vega for this. CT scan showed multiple hernias to the midline scar site. She underwent aincisional hernia repair with mesh on 06/29/2017. Today, she has minimal appetite, with some nausea. She denies any emesis. She denies any chest pains, pressures, shortness of breath. She is taking medications for this. She recently had increased headache several hours ago. Review of Systems All systems: negative Past Medical History Past Medical History: Atrial Fibrillation, Thyroid Disorder Additional Past Medical History / Comment(s): Paroxysmal Afib., Varicose Veins, Hypothyroid, Incisional Hernia. History of Any Multi-Drug Resistant Organisms: None Reported Past Surgical History: Hernia Repair, Hysterectomy, Tonsillectomy Additional Past Surgical History / Comment(s): Right inguinal hernia repair, Cardioversion. Past Anesthesia/Blood Transfusion Reactions: Postoperative Nausea & Vomiting ( PONV) Additional Past Anesthesia/Blood Transfusion Reaction / Comm: Pt received blood with her hysterectomy- no reaction Smoking Status: Former smoker - Past Family History Father Family Medical History: No Reported History Additional Family Medical History / Comment(s): . Mother Family Medical History: No Reported History Additional Family Medical History / Comment(s): . Medications and Allergies Home Medications Medication Instructions Recorded Confirmed Type Ibuprofen [Motrin] 200 - 400 mg PO Q6HR PRN 06/21/17 06/29/17 History LORazepam [Ativan] 0.5 mg PO DAILY PRN 06/21/17 06/29/17 History Levothyroxine Sodium [Synthroid] 50 mcg PO DAILY 06/21/17 06/29/17 History Hydrocodone/Acetaminophen [[place] 1 - 2 each PO Q4HR PRN #30 tab 06/29/17 Rx 5-325] Allergies Allergy/AdvReac Type Severity Reaction Status Date / Time prednisone Allergy Rash/Hives Verified 06/29/17 15:48 Physical Exam Vitals: Vital Signs Temp Pulse Pulse Resp BP Pulse Ox 06/30/17 08:00 98.0 F 81 16 115/68 96 06/30/17 00:42 98.8 F 84 16 99/68 98 06/29/17 20:00 98.1 F 81 18 125/80 93 L 06/29/17 18:00 74 86/55 06/29/17 17:45 67 92/62 06/29/17 17:30 78 96/69 06/29/17 17:15 98 110/77 06/29/17 17:00 82 108/77 06/29/17 16:45 83 99/53 06/29/17 16:30 81 95/61 06/29/17 16:15 95 110/78 06/29/17 16:00 97 F L 101 H 16 118/73 94 L 06/29/17 15:40 60 16 97/52 98 06/29/17 15:25 85 16 101/58 95 06/29/17 15:10 60 16 110/58 97 06/29/17 14:56 94 16 118/73 96 06/29/17 14:55 66 16 118/62 100 06/29/17 14:40 82 16 126/60 100 06/29/17 14:25 98.4 F 74 16 126/65 100 Intake and Output 06/29/17 06/30/17 06/30/17 22:59 06:59 14:59 Intake Total 1287.5 50 Output Total 50 1475 1430 Balance 1237.5 -1475 -1380 Intake: IV 450 Intake, IV Titration 437.5 Amount D5-0.45% NaCl with KCl 437.5 20Meq/l 1,000 ml @ 125 mls/hr IV .Q8H [facility] Rx#: [id number] Oral 400 50 Output: Drainage 50 50 30 Left 10 20 10 Right 40 30 20 Urine 1425 1400 Uretheral (Jacobs) 650 1400 Other: Voiding Method Indwelling Catheter Indwelling Catheter GENERAL: Well-appearing, well-nourished and in mild distress from incisional pain. HEAD: Atraumatic, normocephalic. NECK: Normal range of motion, supple without lymphadenopathy or JVD, no thyromegaly LUNGS: Breath sounds clear to auscultation bilaterally and equal. No wheezes rales or rhonchi. HEART: Regular rate and rhythm without murmurs, rubs or gallops.S1S2 Normal ABDOMEN: abdominal binder in place.bowel sounds present. Palpation was deferred. EXTREMITIES: Normal range of motion, no pitting or edema. No clubbing or cyanosis. NEUROLOGICAL: Cranial nerves II through XII grossly intact. Normal speech, normal gait. PSYCH: Normal mood, normal affect. SKIN: Warm, Dry, normal turgor, no rashes or lesions noted. Results CBC & Chem 7: 06/30/17 06:40 06/30/17 06:40 Labs: Abnormal Lab Results - Last 24 Hours (Table) 06/30/17 Range/Units 06:40 Glucose 115 H (74-99) mg/dL Assessment and Plan Plan: incisional hernia, status post hernia [place] with mesh, postop day 1 History of paroxysmal atrial fibrillation, status post cardioversion. Hypothyroidism. Recent history of tobaccoism. elevated fasting glucose she continue on her current pain medications of the hydrocodone, hydromorphone, ketorolac. She'll continue on pantoprazole for GI prophylaxis. She has SCDs in place for DVT prophylaxis. Her pain seems less than ideally controlled at this time. Patient was made aware she does have when necessary Dilaudid available to her if needed.her elevated sugars are probably from her IV fluids. Thank you for allowing me to participate in her care
[2017-06-30] MEDS: LEVOTHYROXINE 50 MCG TAB PO SCH (16:11)
[2017-06-30] MEDS: ONDANSETRON 4 MG/2 ML VIAL IVP PRN (16:15)
[2017-07-01] MEDS: KETOROLAC 30 MG/ML 1 ML VIAL IVP SCH ×2 (05:02→11:54)
[2017-07-01] MEDS: LEVOTHYROXINE 50 MCG TAB PO SCH (05:03)
[2017-07-01] MEDS: LACTATED RINGERS 1,000 ML IV SCH (05:06)
[2017-07-01] MEDS: D5-0.45% NACL WITH KCL 20MEQ/L 1,000 ML IV SCH (08:44)
[2017-07-01] MEDS: PANTOPRAZOLE 40 MG/10 ML VIAL IV SCH (09:24)
[2017-07-01] MEDS: DOCUSATE 100 MG CAP PO SCH (09:24)
[2017-07-01] MEDS: HEPARIN SODIUM,PORCINE 5,000 UNIT/ML 1 ML VIAL SQ SCH (09:24)
[2017-07-01 09:26] VITALS: BP 113/80; PULSE 102; TEMP 99.5
--- NOTE | 2017-07-01 11:39 | P.PN ---
Progress Note - Text Patient doing well and cleared by surgery for discharge. She is medically stable as well. Follow-up in my office in the next several weeks.
[2017-07-01] MEDS: HYDROcodone/APAP 5-325MG 1 EACH TAB PO PRN (11:53)
--- NOTE | 2017-07-01 12:13 | P.DS ---
Providers Date of admission: 06/29/17 14:16 Expected date of discharge: 07/01/17 Attending physician: Sebastian Steinberg Consults: 06/29/17 14:46 Consult Physician Routine Consulting Provider: Adolfo Lira Jr Consult Reason/Comments: Medical management Do you want consulting provider notified?: Yes Primary care physician: Adolfo Lira - Discharge Diagnosis(es) (1) Incisional hernia Patient admitted for elective repair large incisional hernia 2. She has done well postoperatively. Pain is well-controlled. She is tolerating diet. She would like to go home today. Incision is clean and dry with dressing intact. Both drains are serosanguineous drainage. Prescriptions for Zofran and [place] will be provided. She'll follow up with me later this week. Current Visit: Yes Status: Acute Plan - Discharge Summary Discharge Rx Participant: Yes New Discharge Prescriptions: New Hydrocodone/Acetaminophen [[place] 5-325] 1 - 2 each PO Q4HR PRN #30 tab PRN Reason: pain Continue Levothyroxine Sodium [Synthroid] 50 mcg PO DAILY LORazepam [Ativan] 0.5 mg PO DAILY PRN PRN Reason: Anxiety Ibuprofen [Motrin] 200 - 400 mg PO Q6HR PRN PRN Reason: Pain Discharge Medication List Ibuprofen [Motrin] 200 - 400 mg PO Q6HR PRN 06/21/17 [History] LORazepam [Ativan] 0.5 mg PO DAILY PRN 06/21/17 [History] Levothyroxine Sodium [Synthroid] 50 mcg PO DAILY 06/21/17 [History] Hydrocodone/Acetaminophen [[place] 5-325] 1 - 2 each PO Q4HR PRN #30 tab 06/29/17 [Rx] Follow up Appointment(s)/Referral(s): Sebastian Steinberg MD [Medical Doctor] - 1 Week (CALL OFFICE ON SUNDAY TO SCHEDULE APPOINTMENT, OFFICE CLOSED AT TIME OF DISCHARGE.) Patient Instructions/Handouts: [facility] (DC), Open Herniorrhaphy (DC)
[2017-07-01 17:55] LABS: Hemoglobin A1C 5.5 % (4.0-6.0)
== END 2017-07-01 13:20 | disposition home or self-care (01) | DRG 355 ==
LOC: OR 09:30 → 3SUR 14:16
PROVIDERS: ADMIT Surgery; ATTEND Surgery
PROC: 0WUF0JZ Supplement Abdominal Wall with Synthetic Substitute, Open Approach (ICD-10-PCS; 2017-06-29)
PROC: 0WUF0JZ Supplement Abdominal Wall with Synthetic Substitute, Open Approach (ICD-10-PCS; principal; 2017-06-29 10:30)
DX: K43.0 Incisional hernia with obstruction, without gangrene (principal); I48.0 Paroxysmal atrial fibrillation; I83.90 Asymptomatic varicose veins of unspecified lower extremity; L72.3 Sebaceous cyst; E03.9 Hypothyroidism, unspecified; F41.9 Anxiety disorder, unspecified; Z79.899 Other long term (current) drug therapy; Z90.710 Acquired absence of both cervix and uterus; Z87.891 Personal history of nicotine dependence
CPT/HCPCS: 80048; 83036; 83735; 84100; 85025; 88302

== ENCOUNTER 2017-09-17 10:58 | Emergency (ER) | payer OTHER ==
[2017-09-17] MEDS ORDERED: SODIUM CHLORIDE 0.9% 1,000 ML IV ONE (11:33)
[2017-09-17] MEDS ORDERED: ASPIRIN 81 MG PO STA (11:33)
--- NOTE | 2017-09-17 11:36 | ED ---
General Adult HPI - General Chief complaint: Dizziness Stated complaint: light headed Time Seen by Provider: 09/17/17 11:11 Source: patient Mode of arrival: ambulatory Limitations: no limitations - History of Present Illness Initial comments: Christal Rae is a 42 yo female with PMH of paroxysmal atrial fibrillation who presents to the ED today for evaluation of chest pressure, palpitations and lightheadedness which began this morning. Patient reports that she was in her usual state of health yesterday throughout the day, she does report that she ate more chocolate, caffeine and sodium than usual. She reports that this morning she woke to feeling of pressure in her chest and lightheadedness. She reports this is similar in character to previous episodes of atrial fibrillation. Patient reports that she's had multiple episodes of paroxysmal atrial fibrillation in the past, most recently was one year ago, she has required cardioversion 3 times in the past. She is not currently on any anticoagulation. Patient describes feeling a pressure throughout her entire chest associated with palpitations and a feeling of lightheadedness or grogginess. Patient does report she is experiencing some nasal congestion which she attributes to the weather, however she has not taken any [id number] medications for this. Patient reports in the past or atrial fibrillation has been attributed to alcohol ingestion but she has not had any alcohol for 2 years. She reports today she is feeling a vague pressure throughout her entire chest, no radiation to the shoulders or neck. No associated shortness of breath. No associated nausea or vomiting or GI upset. The symptoms are mild but have persisted for a number of hours. She does report also experiencing a history of anxiety and does state that she feels as though she is very anxious right now because she was so scared this morning that she was in atrial fibrillation. - Related Data Home Medications Medication Instructions Recorded Confirmed Levothyroxine Sodium [Synthroid] 50 mcg PO DAILY 06/21/17 09/17/17 LORazepam [Ativan] 0.5 mg PO Q8H PRN 09/17/17 09/17/17 Allergies Allergy/AdvReac Type Severity Reaction Status Date / Time prednisone Allergy Rash/Hives Verified 09/17/17 11:21 Review of Systems ROS Statement: Those systems with pertinent positive or pertinent negative responses have been documented in the HPI. ROS Other: All systems not noted in ROS Statement are negative. Constitutional: Denies: fever Eyes: Denies: vision change ENT: Reports: congestion. Denies: throat pain Respiratory: Denies: cough, dyspnea, wheezes, hemoptysis, stridor Cardiovascular: Reports: chest pain, palpitations. Denies: dyspnea on exertion , orthopnea, edema, syncope, paroxysmal nocturnal dyspnea Endocrine: Denies: fatigue Gastrointestinal: Denies: abdominal pain, nausea, vomiting Genitourinary: Denies: urgency, dysuria Musculoskeletal: Denies: back pain Skin: Denies: rash, lesions Neurological: Denies: headache, weakness Psychiatric: Reports: anxiety. Denies: depression Hematological/Lymphatic: Denies: easy bleeding, easy bruising Past Medical History Past Medical History: Atrial Fibrillation, Thyroid Disorder Additional Past Medical History / Comment(s): Paroxysmal Afib., Varicose Veins, Hypothyroid, Incisional Hernia. History of Any Multi-Drug Resistant Organisms: None Reported Past Surgical History: Hernia Repair, Hysterectomy, Tonsillectomy Additional Past Surgical History / Comment(s): Right inguinal hernia repair, Cardioversion. Past Anesthesia/Blood Transfusion Reactions: Postoperative Nausea & Vomiting ( PONV) Additional Past Anesthesia/Blood Transfusion Reaction / Comment(s): Pt received blood with her hysterectomy- no reaction Past Psychological History: Anxiety Smoking Status: Former smoker Past Alcohol Use History: None Reported Past Drug Use History: None Reported - Past Family History Father Family Medical History: No Reported History Additional Family Medical History / Comment(s): . Mother Family Medical History: No Reported History Additional Family Medical History / Comment(s): . General Exam Limitations: no limitations General appearance: alert, in no apparent distress Head exam: Present: atraumatic, normocephalic Eye exam: Present: normal appearance, PERRL ENT exam: Present: normal exam Neck exam: Present: normal inspection Respiratory exam: Present: normal lung sounds bilaterally. Absent: respiratory distress, wheezes, rales, rhonchi, stridor Cardiovascular Exam: Present: regular rate, normal rhythm GI/Abdominal exam: Present: soft. Absent: distended Rectal exam: Present: deferred Extremities exam: Present: normal inspection. Absent: pedal edema Back exam: Present: normal inspection Neurological exam: Present: alert, oriented X3. Absent: altered Psychiatric exam: Present: normal affect, normal mood Skin exam: Present: warm, dry Course Vital Signs 09/17/17 09/17/1709/17/18 11:06 13:28 13:39 Temperature 98.4 F 97.4 F L Pulse Rate 75 74 Respiratory 16 18 Rate Blood Pressure 141/82 110/69 O2 Sat by Pulse 98 100 Oximetry EKG Findings - EKG Comments: EKG Findings:: EKG at 11:53 AM - rate is 65, rhythm is normal sinus, normal axis , normal intervals, no acute ST elevations or depressions. No evidence of acute arrhythmia, ischemia or infarction. Medical Decision Making - Medical Decision Making Patient was seen and evaluated, history was obtained from the patient and review of medical record Cardiac workup was ordered EKG normal sinus rhythm no evidence of acute arrhythmia, ischemia or infarction Labs with mild elevation of D-dimer - will order CTA to evaluate for PE Labs otherwise unremarkable CTA with no evidence of PE, there is a small nodule in the left lung requires follow-up in the future. Lab and CT results were discussed with the patient who expresses relief. Patient reports that she feels significantly better after IV fluids and believes that she was just dehydrated. She is asymptomatic, not experiencing chest pressure, palpitations or lightheadedness. At this time she states she feels very comfortable going home. All questions pertaining care were answered to the best of my ability and the patient was discharged home, patient was advised to return to the emergency department should she develop any new or concerning symptoms any chest pain, difficulty breathing or new or concerning symptoms. - Lab Data Result diagrams: 09/17/17 12:45 09/17/17 11:42 Lab Results 09/17/17 09/17/17 09/17/17 Range/Units 11:42 11:42 11:42 WBC (3.8-10.6) k/uL RBC (3.80-5.40) m/uL Hgb (11.4-16.0) gm/dL Hct (34.0-46.0) % MCV (80.0-100.0) fL MCH (25.0-35.0) pg MCHC (31.0-37.0) g/dL RDW (11.5-15.5) % Plt Count (150-450) k/uL Neutrophils % % Lymphocytes % % Monocytes % % Eosinophils % % Basophils % % Neutrophils # (1.3-7.7) k/uL Lymphocytes # (1.0-4.8) k/uL Monocytes # (0-1.0) k/uL Eosinophils # (0-0.7) k/uL Basophils # (0-0.2) k/uL PT 9.8 (9.0-12.0) sec INR 1.0 (<1.2) APTT 24.6 (22.0-30.0) sec D-Dimer 0.62 H (<0.60) mg/L FEU Sodium 142 (137-145) mmol/L Potassium 4.4 (3.5-5.1) mmol/L Chloride 107 (98-107) mmol/L Carbon Dioxide 23 (22-30) mmol/L Anion Gap 12 mmol/L BUN 15 (7-17) mg/dL Creatinine 0.60 (0.52-1.04) mg/dL Est GFR (CKD-EPI)AfAm >90 (>60 ml/min/1.73 sqM) Est GFR (CKD-EPI)NonAf >90 (>60 ml/min/1.73 sqM) Glucose 98 (74-99) mg/dL Calcium 9.2 (8.4-10.2) mg/dL Magnesium 1.8 (1.6-2.3) mg/dL Troponin I (0.000-0.034) ng/mL NT-Pro-B Natriuret Pep pg/mL Urine Color Urine Appearance (Clear) Urine pH (5.0-8.0) Ur Specific [place] (1.001-1.035) Urine Protein (Negative) Urine Glucose (UA) (Negative) Urine Ketones (Negative) Urine Blood (Negative) Urine Nitrite (Negative) Urine Bilirubin (Negative) Urine Urobilinogen (<2.0) mg/dL Ur Leukocyte Esterase (Negative) Urine RBC (0-5) /hpf Urine WBC (0-5) /hpf Ur Squamous Epith Cells (0-4) /hpf Urine Bacteria (None) /hpf Urine Mucus (None) /hpf Urine HCG, Qual Not Detected (Not Detectd) 09/17/17 09/17/17 09/17/17 Range/Units 11:42 11:42 11:42 WBC (3.8-10.6) k/uL RBC (3.80-5.40) m/uL Hgb (11.4-16.0) gm/dL Hct (34.0-46.0) % MCV (80.0-100.0) fL MCH (25.0-35.0) pg MCHC (31.0-37.0) g/dL RDW (11.5-15.5) % Plt Count (150-450) k/uL Neutrophils % % Lymphocytes % % Monocytes % % Eosinophils % % Basophils % % Neutrophils # (1.3-7.7) k/uL Lymphocytes # (1.0-4.8) k/uL Monocytes # (0-1.0) k/uL Eosinophils # (0-0.7) k/uL Basophils # (0-0.2) k/uL PT (9.0-12.0) sec INR (<1.2) APTT (22.0-30.0) sec D-Dimer (<0.60) mg/L FEU Sodium (137-145) mmol/L Potassium (3.5-5.1) mmol/L Chloride (98-107) mmol/L Carbon Dioxide (22-30) mmol/L Anion Gap mmol/L BUN (7-17) mg/dL Creatinine (0.52-1.04) mg/dL Est GFR (CKD-EPI)AfAm (>60 ml/min/1.73 sqM) Est GFR (CKD-EPI)NonAf (>60 ml/min/1.73 sqM) Glucose (74-99) mg/dL Calcium (8.4-10.2) mg/dL Magnesium (1.6-2.3) mg/dL Troponin I <0.012 (0.000-0.034) ng/mL NT-Pro-B Natriuret Pep 62 pg/mL Urine Color Yellow Urine Appearance Cloudy H (Clear) Urine pH 6.5 (5.0-8.0) Ur Specific [place] 1.027 (1.001-1.035) Urine Protein Trace H (Negative) Urine Glucose (UA) Negative (Negative) Urine Ketones Negative (Negative) Urine Blood Negative (Negative) Urine Nitrite Negative (Negative) Urine Bilirubin Negative (Negative) Urine Urobilinogen <2.0 (<2.0) mg/dL Ur Leukocyte Esterase Negative (Negative) Urine RBC 9 H (0-5) /hpf Urine WBC 2 (0-5) /hpf Ur Squamous Epith Cells 10 H (0-4) /hpf Urine Bacteria Rare H (None) /hpf Urine Mucus Occasional H (None) /hpf Urine HCG, Qual (Not Detectd) 09/17/17 Range/Units 12:45 WBC 7.1 (3.8-10.6) k/uL RBC 4.03 (3.80-5.40) m/uL Hgb 12.2 (11.4-16.0) gm/dL Hct 35.5 (34.0-46.0) % MCV 88.2 (80.0-100.0) fL MCH 30.4 (25.0-35.0) pg MCHC 34.5 (31.0-37.0) g/dL RDW 12.7 (11.5-15.5) % Plt Count 226 (150-450) k/uL Neutrophils % 59 % Lymphocytes % 28 % Monocytes % 4 % Eosinophils % 8 % Basophils % 1 % Neutrophils # 4.2 (1.3-7.7) k/uL Lymphocytes # 2.0 (1.0-4.8) k/uL Monocytes # 0.3 (0-1.0) k/uL Eosinophils # 0.6 (0-0.7) k/uL Basophils # 0.0 (0-0.2) k/uL PT (9.0-12.0) sec INR (<1.2) APTT (22.0-30.0) sec D-Dimer (<0.60) mg/L FEU Sodium (137-145) mmol/L Potassium (3.5-5.1) mmol/L Chloride (98-107) mmol/L Carbon Dioxide (22-30) mmol/L Anion Gap mmol/L BUN (7-17) mg/dL Creatinine (0.52-1.04) mg/dL Est GFR (CKD-EPI)AfAm (>60 ml/min/1.73 sqM) Est GFR (CKD-EPI)NonAf (>60 ml/min/1.73 sqM) Glucose (74-99) mg/dL Calcium (8.4-10.2) mg/dL Magnesium (1.6-2.3) mg/dL Troponin I (0.000-0.034) ng/mL NT-Pro-B Natriuret Pep pg/mL Urine Color Urine Appearance (Clear) Urine pH (5.0-8.0) Ur Specific [place] (1.001-1.035) Urine Protein (Negative) Urine Glucose (UA) (Negative) Urine Ketones (Negative) Urine Blood (Negative) Urine Nitrite (Negative) Urine Bilirubin (Negative) Urine Urobilinogen (<2.0) mg/dL Ur Leukocyte Esterase (Negative) Urine RBC (0-5) /hpf Urine WBC (0-5) /hpf Ur Squamous Epith Cells (0-4) /hpf Urine Bacteria (None) /hpf Urine Mucus (None) /hpf Urine HCG, Qual (Not Detectd) Disposition Clinical Impression: Heart palpitations Disposition: HOME SELF-CARE Condition: Good Instructions: Palpitations (ED) Referrals: Adolfo Lira Jr, DO [Primary Care Provider] - 1-2 days Time of Disposition: 13:31
[2017-09-17 12:03] LABS: Appearance,Urine Cloudy (Clear); Bacteria,Urine Rare /hpf; Bilirubin,Urine Negative (Negative); Blood,Urine Negative (Negative); Color,Urine Yellow; Glucose,Urine (UA) Negative (Negative); Ketones,Urine Negative (Negative); Leukocyte Esterase,Urine Negative (Negative); Mucus,Urine Occasional /hpf; Nitrite,Urine Negative (Negative); PH, Urine 6.5 (5.0-8.0); Protein,Urine Trace (Negative); RBC,Urine 9 /hpf (0-5); Specific Gravity,Urine 1.027 (1.001-1.035); Squamous Epithelial Cell,Urine 10 /hpf (0-4); Urobilinogen,Urine <2.0 mg/dL (<2.0); WBC,Urine 2 /hpf (0-5)
[2017-09-17 12:08] LABS: Anion Gap 12 mmol/L; Blood Urea Nitrogen 15 mg/dL (7-17); Calcium 9.2 mg/dL (8.4-10.2); Carbon Dioxide 23 mmol/L (22-30); Chloride 107 mmol/L (98-107); Glucose 98 mg/dL (74-99); Magnesium 1.8 mg/dL (1.6-2.3); Potassium 4.4 mmol/L (3.5-5.1); Sodium 142 mmol/L (137-145)
[2017-09-17 12:15] LABS: D-Dimer 0.62 mg/L FEU (<0.60); Partial Thromboplastin Time 24.6 sec (22.0-30.0); Prothrombin Time 9.8 sec (9.0-12.0)
[2017-09-17] MEDS ORDERED: RX INFO: IV CONTRAST WAS GIVEN 1 EACH MISC MISCELLANE PRN (12:37)
[2017-09-17 12:54] LABS: Basophils % (A) 1 %; Eosinophils # (A) 0.6 k/uL (0-0.7); Eosinophils % (A) 8 %; HCT 35.5 % (34.0-46.0); HGB 12.2 gm/dL (11.4-16.0); Lymphocytes % (A) 28 %; MCH 30.4 pg (25.0-35.0); MCHC 34.5 g/dL (31.0-37.0); MCV 88.2 fL (80.0-100.0); Mean Platelet Volume 7.3; Monocytes # (A) 0.3 k/uL (0-1.0); Monocytes % (A) 4 %; Neutrophils # (A) 4.2 k/uL (1.3-7.7); Neutrophils % (A) 59 %; Platelet Count 226 k/uL (150-450); RBC 4.03 m/uL (3.80-5.40); RDW 12.7 % (11.5-15.5); WBC 7.1 k/uL (3.8-10.6)
--- NOTE | 2017-09-17 13:13 | CT ---
EXAMINATION TYPE: CT angio chest DATE OF EXAM: 09/17/2017 COMPARISON: NONE HISTORY: Lightheadedness and elevated d-dimer. CT DLP: 510.3 mGycm. Automated Exposure Control for Dose Reduction was Utilized. CONTRAST: CTA scan of the thorax is performed with IV Contrast, patient injected with 100 mL of Isovue 370, pul monary embolism protocol. MIP Images are created on CT scanner and reviewed. FINDINGS: LUNGS: There is a 5 mm solid pulmonary nodule in the left upper lobe on series 5 image 40 in addition to a 2 mm subpleural solid-appearing pulmonary nodule in the left lower lobe on series 5 image 103. The lungs are grossly clear, there is no concerning parenchymal mass. There is no pleural effusion or pneumothorax seen. The tracheobronchial tree is patent. MEDIASTINUM: There is satisfactory enhancement of the pulmonary artery and its branches, there is no CT evidence for pulmonary embolism. There are no greater than 1 cm hilar or mediastinal lymph nodes. No cardiomegaly or pericardial effusion is seen. IMPRESSION: 1. No evidence of pulmonary embolus. 2. 5 mm into millimeter left-sided pulmonary nodules. Follow-up CT is recommended in 12 months to ens ure stability per consensus guidelines.
[2017-09-17 13:29] VITALS: BP 110/69; PULSE 74; RESP 18
[2017-09-17 13:39] VITALS: TEMP 97.4
== END 2017-09-17 13:39 | disposition home or self-care (01) ==
LOC: EC 10:58
DX: R00.2 Palpitations (principal); R07.9 Chest pain, unspecified; R42 Dizziness and giddiness; R09.81 Nasal congestion; I48.91 Unspecified atrial fibrillation; E03.9 Hypothyroidism, unspecified; Z87.891 Personal history of nicotine dependence; Z98.890 Other specified postprocedural states; Z79.899 Other long term (current) drug therapy; Z88.8 Allergy status to other drugs, medicaments and biological substances
CPT/HCPCS: 36415; 93005; 85379; 83880; 80048; 83735; 84484; 85025; 85610; 85730; 81001; 81025; 71275; 99284; 96360; Q9967

== ENCOUNTER 2021-06-11 09:30 | Inpatient (IN) | payer BC, OTHER ==
[2021-06-11] MEDS ORDERED: HEPARIN SODIUM 1,000 UN/ML (10ML VL) IV ONE (09:50)
[2021-06-11] MEDS ORDERED: SODIUM CHLORIDE 0.9% 500 ML 500 ML IV STA (09:50)
[2021-06-11] MEDS ORDERED: DILTIAZEM DRIP BOLUS FROM BAG 1 MG SOLN IV ONE (09:51)
--- NOTE | 2021-06-11 09:55 | ED ---
General Adult HPI - General Chief complaint: Arrhythmia/Palpitations Stated complaint: AFIB Time Seen by Provider: 06/11/21 09:30 Source: patient, RN notes reviewed, old records reviewed Mode of arrival: ambulatory Limitations: no limitations - History of Present Illness Initial comments: This is a 46-year-old female presents emergency department with past medical history significant for intermittent atrial fibrillation. Patient states she woke up this morning and her heart was racing she took her pulse and she really she was in atrial fibrillation she came to the emergency department. Patient denies any drinking patient states she does not drink caffeine. Patient states however she continues to smoke patient denies any chest pain or palpitations. Patient denies any shortness of breath. Patient denies any abdominal pain patient's nausea vomiting diarrhea. Patient states she had some congestion last week and was a little under the weather at that time. Patient states she got the COVID vaccine in the posterior at the beginning of May. - Related Data Home Medications Medication Instructions Recorded Confirmed LORazepam [Ativan] 0.5 mg PO TID PRN 09/17/17 06/11/21 Ergocalciferol [Vitamin D2 (1250 1,250 mcg PO WE 06/11/21 06/11/21 Mcg = 99647 Iu)] Levothyroxine Sodium [Synthroid] 75 mcg PO DAILY 06/11/21 06/11/21 guaiFENesin [Mucinex] 600 mg PO BID PRN 06/11/21 06/11/21 Allergies Allergy/AdvReac Type Severity Reaction Status Date / Time prednisone Allergy Rash/Hives Verified 06/11/21 10:21 Review of Systems ROS Statement: Those systems with pertinent positive or pertinent negative responses have been documented in the HPI. ROS Other: All systems not noted in ROS Statement are negative. Past Medical History Past Medical History: Atrial Fibrillation, Thyroid Disorder Additional Past Medical History / Comment(s): Paroxysmal Afib., Varicose Veins, Hypothyroid, Incisional Hernia. History of Any Multi-Drug Resistant Organisms: None Reported Past Surgical History: Hernia Repair, Hysterectomy, Tonsillectomy Additional Past Surgical History / Comment(s): Right inguinal hernia repair, Cardioversion. Past Anesthesia/Blood Transfusion Reactions: Postoperative Nausea & Vomiting (PONV) Additional Past Anesthesia/Blood Transfusion Reaction / Comment(s): Pt received blood with her hysterectomy- no reaction Past Psychological History: Anxiety Smoking Status: Current every day smoker Past Alcohol Use History: None Reported Past Drug Use History: None Reported - Past Family History Father Family Medical History: No Reported History Additional Family Medical History / Comment(s): . Mother Family Medical History: No Reported History Additional Family Medical History / Comment(s): . General Exam - General Exam Comments Initial Comments: GENERAL: Patient is well-developed and well-nourished. Patient is nontoxic and well- hydrated and is in mild distress. ENT: Neck is soft and supple. No significant lymphadenopathy is noted. Oropharynx is clear. Moist mucous membranes. Neck has full range of motion without eliciting any pain. EYES: The sclera were anicteric and conjunctiva were pink and moist. Extraocular movements were intact and pupils were equal round and reactive to light. Eyelids were unremarkable. PULMONARY: Unlabored respirations. Good breath sounds bilaterally. No audible rales rhonchi or wheezing was noted. CARDIOVASCULAR: Patient has an irregular heartbeat at about 160 beats a minute ABDOMEN: Soft and nontender with normal bowel sounds. SKIN: Skin is clear with no lesions or rashes and otherwise unremarkable. NEUROLOGIC: Patient is alert and oriented x3. Cranial nerves II through XII are grossly intact. Motor and sensory are also intact. Normal speech, volume and content. Symmetrical smile. MUSCULOSKELETAL: Normal extremities with adequate strength and full range of motion. No lower extremity swelling or edema. No calf tenderness. LYMPHATICS: No significant lymphadenopathy is noted PSYCHIATRIC: Normal psychiatric evaluation. Limitations: no limitations Course Vital Signs 06/11/21 06/11/21 09:31 10:11 Temperature 97.9 F Pulse Rate 71 135 H Respiratory 20 18 Rate Blood Pressure 186/106 124/101 O2 Sat by Pulse 96 95 Oximetry Medical Decision Making - Medical Decision Making EKG shows A. fib with rapid ventricular response at 118 bpm QRS is 86 QT interval 370 QTC is 378. I started the patient a Cardizem drip after I gave her 10 mg Cardizem bolus. I also started the patient on heparin. Chest x-ray shows no acute abnormality. I spoke with Dr. byers he agreed to admit the patient admitted the patient I wrote admitting orders I continue the heparin the Cardizem on the floor. I consult to cardiology. - Lab Data Result diagrams: 06/11/21 09:58 06/11/21 09:58 Lab Results 06/11/21 06/11/21 06/11/21 Range/Units 09:58 09:58 09:58 WBC 7.5 (3.8-10.6) k/uL RBC 4.26 (3.80-5.40) m/uL Hgb 13.2 (11.4-16.0) gm/dL Hct 40.2 (34.0-46.0) % MCV 94.3 (80.0-100.0) fL MCH 30.9 (25.0-35.0) pg MCHC 32.8 (31.0-37.0) g/dL RDW 12.1 (11.5-15.5) % Plt Count 219 (150-450) k/uL MPV 8.7 Neutrophils % 44 % Lymphocytes % 42 % Monocytes % 4 % Eosinophils % 8 % Basophils % 1 % Neutrophils # 3.3 (1.3-7.7) k/uL Lymphocytes # 3.1 (1.0-4.8) k/uL Monocytes # 0.3 (0-1.0) k/uL Eosinophils # 0.6 (0-0.7) k/uL Basophils # 0.1 (0-0.2) k/uL PT 9.9 (9.0-12.0) sec INR 0.9 (<1.2) APTT 23.9 (22.0-30.0) sec Sodium 138 (137-145) mmol/L Potassium 4.2 (3.5-5.1) mmol/L Chloride 108 H (98-107) mmol/L Carbon Dioxide 19 L (22-30) mmol/L Anion Gap 11 mmol/L BUN 12 (7-17) mg/dL Creatinine 0.54 (0.52-1.04) mg/dL Est GFR (CKD-EPI)AfAm >90 (>60 ml/min/1.73 sqM) Est GFR (CKD-EPI)NonAf >90 (>60 ml/min/1.73 sqM) Glucose 112 H (74-99) mg/dL Calcium 9.3 (8.4-10.2) mg/dL Magnesium 1.8 (1.6-2.3) mg/dL Total Bilirubin 0.4 (0.2-1.3) mg/dL AST 28 (14-36) U/L ALT 35 H (4-34) U/L Alkaline Phosphatase 54 (38-126) U/L Troponin I (0.000-0.034) ng/mL Total Protein 7.1 (6.3-8.2) g/dL Albumin 4.3 (3.5-5.0) g/dL TSH 0.804 (0.465-4.680) mIU/L 06/11/21 Range/Units 09:58 WBC (3.8-10.6) k/uL RBC (3.80-5.40) m/uL Hgb (11.4-16.0) gm/dL Hct (34.0-46.0) % MCV (80.0-100.0) fL MCH (25.0-35.0) pg MCHC (31.0-37.0) g/dL RDW (11.5-15.5) % Plt Count (150-450) k/uL MPV Neutrophils % % Lymphocytes % % Monocytes % % Eosinophils % % Basophils % % Neutrophils # (1.3-7.7) k/uL Lymphocytes # (1.0-4.8) k/uL Monocytes # (0-1.0) k/uL Eosinophils # (0-0.7) k/uL Basophils # (0-0.2) k/uL PT (9.0-12.0) sec INR (<1.2) APTT (22.0-30.0) sec Sodium (137-145) mmol/L Potassium (3.5-5.1) mmol/L Chloride (98-107) mmol/L Carbon Dioxide (22-30) mmol/L Anion Gap mmol/L BUN (7-17) mg/dL Creatinine (0.52-1.04) mg/dL Est GFR (CKD-EPI)AfAm (>60 ml/min/1.73 sqM) Est GFR (CKD-EPI)NonAf (>60 ml/min/1.73 sqM) Glucose (74-99) mg/dL Calcium (8.4-10.2) mg/dL Magnesium (1.6-2.3) mg/dL Total Bilirubin (0.2-1.3) mg/dL AST (14-36) U/L ALT (4-34) U/L Alkaline Phosphatase (38-126) U/L Troponin I <0.012 (0.000-0.034) ng/mL Total Protein (6.3-8.2) g/dL Albumin (3.5-5.0) g/dL TSH (0.465-4.680) mIU/L Critical Care Time Critical Care Time: Yes Total Critical Care Time: 35 Disposition Clinical Impression: Atrial fibrillation with RVR Disposition: ADMITTED IP TO THIS HOSP Referrals: Adolfo Lira Jr, [Primary Care Provider] - 1-2 days Time of Disposition: 11:19
[2021-06-11] MEDS: HEPARIN SOD,PORK IN 0.45% NACL 25,000 UNIT in 0.45% NACL 1 250ML.BAG IV SCH (10:08)
[2021-06-11] MEDS: DILTIAZEM 125 MG in SODIUM CHLORIDE 0.9% 100 ML IV SCH (10:12)
[2021-06-11 10:15] LABS: Basophils # (A) 0.1 k/uL (0-0.2); Basophils % (A) 1 %; Eosinophils # (A) 0.6 k/uL (0-0.7); Eosinophils % (A) 8 %; HCT 40.2 % (34.0-46.0); HGB 13.2 gm/dL (11.4-16.0); Lymphocytes # (A) 3.1 k/uL (1.0-4.8); Lymphocytes % (A) 42 %; MCH 30.9 pg (25.0-35.0); MCHC 32.8 g/dL (31.0-37.0); MCV 94.3 fL (80.0-100.0); Mean Platelet Volume 8.7; Monocytes # (A) 0.3 k/uL (0-1.0); Monocytes % (A) 4 %; Neutrophils # (A) 3.3 k/uL (1.3-7.7); Neutrophils % (A) 44 %; Platelet Count 219 k/uL (150-450); RBC 4.26 m/uL (3.80-5.40); RDW 12.1 % (11.5-15.5); WBC 7.5 k/uL (3.8-10.6)
--- NOTE | 2021-06-11 10:16 | XR ---
EXAMINATION TYPE: XR chest 2V DATE OF EXAM: 06/11/2021 COMPARISON: Limited comparison made to CT chest dated 09/17/2017 HISTORY: Dysrhythmia TECHNIQUE: Frontal and lateral views of the chest are obtained. IMPRESSION: No focal airspace disease, pneumothorax or pleural effusion. Slight lung base atelectasis greater on the right is favored. Normal cardiomediastinal silhouette. Mild bony spurring in the thoracic spine without acute osseous abnormality.
[2021-06-11 10:20] LABS: INR 0.9 (<1.2); Partial Thromboplastin Time 23.9 sec (22.0-30.0); Prothrombin Time 9.9 sec (9.0-12.0)
[2021-06-11 10:21] LABS: ALT 35 U/L (4-34); AST 28 U/L (14-36); African American GFR (CKD) >90 (>60 ml/min/1.73 sqM); Albumin 4.3 g/dL (3.5-5.0); Alkaline Phosphatase 54 U/L (38-126); Anion Gap 11 mmol/L; Blood Urea Nitrogen 12 mg/dL (7-17); Calcium 9.3 mg/dL (8.4-10.2); Carbon Dioxide 19 mmol/L (22-30); Chloride 108 mmol/L (98-107); Glucose 112 mg/dL (74-99); Magnesium 1.8 mg/dL (1.6-2.3); Non-African American GFR(CKD) >90 (>60 ml/min/1.73 sqM); Potassium 4.2 mmol/L (3.5-5.1); Sodium 138 mmol/L (137-145); Total Bilirubin 0.4 mg/dL (0.2-1.3); Total Protein 7.1 g/dL (6.3-8.2)
[2021-06-11] MEDS ORDERED: NITROGLYCERIN SL TABS 0.4 MG TAB SUBLINGUAL PRN (11:19)
[2021-06-11 11:48] LABS: Amphetamine Screen,Urine Not Detected (NotDetected); Barbiturate Screen,Urine Not Detected (NotDetected); Benzodiazepines Screen,Urine Not Detected (NotDetected); Cocaine Screen,Urine Not Detected (NotDetected); Methadone Screen, Urine Not Detected (NotDetected); Opiate Screen,Urine Not Detected (NotDetected); Phencyclidine Screen,Urine Not Detected (NotDetected); Tricyclic Antidepressant,Urine Not Detected (NotDetected); Urn Cannabinoid Scrn Not Detected (NotDetected)
[2021-06-11 11:49] LABS: Oxycodone Screen, Urine Not Detected (NotDetected)
[2021-06-11] MEDS ORDERED: LORazepam 0.5 MG TAB PO PRN (12:30)
--- NOTE | 2021-06-11 12:30 | P.HPIM ---
History of Present Illness H&P Date: 06/11/21 Chief Complaint: Palpitations This 46-year-old white female known to the practice. She has a history of atrial fibrillation that's been cardioverted in the past. She is not on any anticoagulation and currently takes medications for anxiety and hypothyroidism. She reports having an upper respiratory tract infection last week but was: Negative. She woke up this morning with palpitations and her apple watch indicating she was in A. fib with a rate of 160s. She came emergency room seen evaluated by the ER doctor confirmed the findings of atrial fibrillation with RVR. Started her on a Cardizem drip, her heart rate is now in the 80s. She feels much improved. She denies any shortness of breath, chest pains, nausea or vomiting, or other symptomatology. Her upper respiratory tract infection is mostly resolved. She denies any recent alcohol use. She ordinarily sees Dr. Barlow per Dr. Bustamante. Vital signs are now stable blood pressure 112/70 pulse ox 90% on room air. Laboratory studies show normal CBC, INR is normal 0.9, chemistries are essentially normal. TSH is 0.804. Urine drug screen is normal, [place] virus screening negative. Troponin less than 0.012. Initial ER EKG today shows A. fib with RVR and chest x-ray showed no focal airspace disease. Review of Systems All systems: negative Past Medical History Past Medical History: Atrial Fibrillation (Paroxysmal, history of cardioversion), Thyroid Disorder (Hypothyroidism) Additional Past Medical History / Comment(s): Incisional Hernia. History of Any Multi-Drug Resistant Organisms: None Reported Past Surgical History: Hernia Repair, Hysterectomy, Tonsillectomy Additional Past Surgical History / Comment(s): Right inguinal hernia repair, Cardioversion. Past Anesthesia/Blood Transfusion Reactions: Postoperative Nausea & Vomiting (PONV) Additional Past Anesthesia/Blood Transfusion Reaction / Comment(s): Pt received blood with her hysterectomy- no reaction Past Psychological History: Anxiety Smoking Status: Current every day smoker Past Alcohol Use History: None Reported Past Drug Use History: None Reported - Past Family History Father Family Medical History: No Reported History Additional Family Medical History / Comment(s): . Mother Family Medical History: No Reported History Additional Family Medical History / Comment(s): . Medications and Allergies Home Medications Medication Instructions Recorded Confirmed Type LORazepam [Ativan] 0.5 mg PO TID PRN 09/17/17 06/11/21 History Ergocalciferol [Vitamin D2 (1250 1,250 mcg PO WE 06/11/21 06/11/21 History Mcg = 98296 Iu)] Levothyroxine Sodium [Synthroid] 75 mcg PO DAILY 06/11/21 06/11/21 History guaiFENesin [Mucinex] 600 mg PO BID PRN 06/11/21 06/11/21 History Allergies Allergy/AdvReac Type Severity Reaction Status Date / Time prednisone Allergy Rash/Hives Verified 06/11/21 10:21 Physical Exam Vitals: Vital Signs Temp Pulse Resp BP Pulse Ox 06/11/21 11:30 74 18 112/78 98 06/11/21 10:30 101 H 12 124/101 06/11/21 10:11 135 H 18 124/101 95 06/11/21 09:31 97.9 F 71 20 186/106 96 Intake and Output 06/10/21 06/11/21 06/11/21 22:59 06:59 14:59 Other: Weight 104.326 kg GENERAL: Well-appearing, well-nourished and in no acute distress. HEAD: Atraumatic, normocephalic. EYES: Pupils equal round and reactive to light, extraocular movements intact, sclera anicteric, conjunctiva are normal. ENT:nares patent, oropharynx clear without exudates. Moist mucous membranes. NECK: Normal range of motion, supple without lymphadenopathy or JVD, no th yromegaly LUNGS: Breath sounds clear to auscultation bilaterally and equal. No wheezes rales or rhonchi. HEART: Regular rate and rhythm without murmurs, rubs or gallops.S1S2 Normal ABDOMEN: Soft, nontender, normoactive bowel sounds. No guarding, no rebound. No masses appreciated. EXTREMITIES: Normal range of motion, no pitting or edema. No clubbing or cyanosis. NEUROLOGICAL: Cranial nerves II through XII grossly intact. Normal speech, normal gait. PSYCH: Normal mood, normal affect. SKIN: Warm, Dry, normal turgor, no rashes or lesions noted. Results CBC & Chem 7: 06/11/21 09:58 06/11/21 09:58 Labs: Abnormal Lab Results - Last 24 Hours (Table) 06/11/21 Range/Units 09:58 Chloride 108 H (98-107) mmol/L Carbon Dioxide 19 L (22-30) mmol/L Glucose 112 H (74-99) mg/dL ALT 35 H (4-34) U/L Chest x-ray: report reviewed Thrombosis Risk Factor Assmnt - DVT/VTE Prophylaxis DVT/VTE Prophylaxis: Pharmacologic Prophylaxis ordered (Currently on heparin drip) Assessment and Plan (1) Paroxysmal atrial fibrillation Current Visit: Yes Status: Acute Code(s): I48.0 - PAROXYSMAL ATRIAL FIBRILLATION SNOMED Code(s): 865019443 (2) Hypothyroidism Current Visit: Yes Status: Acute Code(s): E03.9 - HYPOTHYROIDISM, UNSPECIFIED SNOMED Code(s): 43411580 (3) Anxiety Current Visit: Yes Status: Acute Code(s): F41.9 - ANXIETY DISORDER, UNSPECIFIED SNOMED Code(s): 71514716 (4) Atrial fibrillation with RVR Current Visit: Yes Status: Acute Code(s): I48.91 - UNSPECIFIED ATRIAL FIBRILLATION SNOMED Code(s): 921949205522127 (5) Palpitations Current Visit: No Status: Acute Code(s): R00.2 - PALPITATIONS SNOMED Code(s): 06539749 Plan: She'll remain on heparin drip and Cardizem drip at this time. Consult cardiology. She can aspirin. She is eventually listen or when necessary. We'll reorder her home medications. She will be reevaluated in the next 24 hours.
[2021-06-11] MEDS ORDERED: LORATADINE 10 MG TAB PO PRN (20:41)
[2021-06-12] MEDS: LEVOTHYROXINE 75 MCG TAB PO SCH (06:48)
--- NOTE | 2021-06-12 08:24 | P.CRDCN ---
History of Present Illness Consult date: 06/12/21 History of present illness: This is a 46-year-old female with history of persistent episodes of recurrent atrial fibrillation who had cardioversion 3-4 times in the past. Last cardioversion was performed in 2017. At the time, there was a discussion about ablation but that was never carried out. Patient was treated with flecainide at the time but currently she is not taking flecainide. She came to the hospital with complaints of palpitations since yesterday morning. She seemed to be lower [place] fibrillation with rapid ventricular response. Patient was started on IV Cardizem. She still remained in atrial fibrillation. Patient is advised to have VISHNU cardioversion. Patient wants to go through. Patient has been nothing by mouth. She fully understands the risks and benefits of procedure. She denies any chest pain, dizziness or syncope Review of Systems As per the chart Past Medical History Past Medical History: Atrial Fibrillation (Paroxysmal, history of cardioversion), Thyroid Disorder (Hypothyroidism) Additional Past Medical History / Comment(s): Incisional Hernia. History of Any Multi-Drug Resistant Organisms: None Reported Past Surgical History: Hernia Repair, Hysterectomy, Tonsillectomy Additional Past Surgical History / Comment(s): Right inguinal hernia repair, Cardioversion. Past Anesthesia/Blood Transfusion Reactions: Postoperative Nausea & Vomiting (PONV) Additional Past Anesthesia/Blood Transfusion Reaction / Comment(s): Pt received blood with her hysterectomy- no reaction Past Psychological History: Anxiety Smoking Status: Current every day smoker Past Alcohol Use History: None Reported Past Drug Use History: None Reported - Past Family History Father Family Medical History: No Reported History Additional Family Medical History / Comment(s): . Mother Family Medical History: No Reported History Additional Family Medical History / Comment(s): . Medications and Allergies Home Medications Medication Instructions Recorded Confirmed Type LORazepam [Ativan] 0.5 mg PO TID PRN 09/17/17 06/11/21 History Ergocalciferol [Vitamin D2 (1250 1,250 mcg PO WE 06/11/21 06/11/21 History Mcg = 13623 Iu)] Levothyroxine Sodium [Synthroid] 75 mcg PO DAILY 06/11/21 06/11/21 History guaiFENesin [Mucinex] 600 mg PO BID PRN 06/11/21 06/11/21 History Allergies Allergy/AdvReac Type Severity Reaction Status Date / Time prednisone Allergy Rash/Hives Verified 06/11/21 10:21 Physical Exam Vitals: Vital Signs Temp Pulse Pulse Resp BP BP Pulse Ox 06/12/21 03:49 97.7 F 77 17 99/63 98 06/12/21 02:00 90 18 06/12/21 00:00 97.7 F 90 18 96/52 96 06/11/21 20:00 97.4 F L 74 17 114/65 96 06/11/21 16:12 78 18 124/92 98 06/11/21 16:00 98.1 F 73 18 154/73 97 06/11/21 14:00 73 06/11/21 11:30 74 18 112/78 98 06/11/21 10:30 101 H 12 124/101 06/11/21 10:11 135 H 18 124/101 95 06/11/21 09:31 97.9 F 71 20 186/106 96 Intake and Output 06/11/21 06/12/21 06/12/21 22:59 06:59 14:59 Intake Total 94.667 781.312 Balance 94.667 781.312 Intake: IV 160 0.9 160 Intake, IV Titration 94.667 141.312 Amount Diltiazem 125 mg In 40 Sodium Chloride 0.9% 100 ml @ 5 MG/HR 5 mls/hr IV .Q24H [facility] Rx#:[id number] Heparin Sod,Pork in 0.45% 94.667 101.312 NaCl 25,000 unit In 0.45 % NaCl 1 250ml.bag @ 9. 585 UNITS/KG/HR 10 mls/hr IV .Q24H [facility] Rx#: [id number] Oral 480 Other: # Voids 1 2 GENERAL EXAM: Patient is alert and oriented and doesn't appear to be in any acute distress HEENT: Normocephalic. Normal reaction of pupils, equal size, normal range of extraocular motion. No erythema or exudates in the throat. NECK: No masses, no nuchal rigidity. CHEST: No chest wall deformity. LUNGS: Equal air entry with no crackles or wheeze. HEART: S1 and S2 normal . Irregular heart sounds ABDOMEN: No hepatosplenomegaly, normal bowel sounds, no guarding or rigidity. SKIN: No rashes CENTRAL NERVOUS SYSTEM: No focal deficits. EXTREMITIES: No cyanosis, clubbing or edema. Results 06/11/21 09:58 06/11/21 09:58 Cardiac Enzymes 06/11/21 06/11/21 06/11/21 Range/Units 09:58 09:58 12:01 AST 28 (14-36) U/L Troponin I <0.012 <0.012 (0.000-0.034) ng/mL 06/11/21 Range/Units 16:11 AST (14-36) U/L Troponin I <0.012 (0.000-0.034) ng/mL Coagulation 06/11/21 06/11/21 06/12/21 Range/Units 09:58 16:11 01:02 PT 9.9 (9.0-12.0) sec APTT 23.9 33.9 H 40.4 H (22.0-30.0) sec CBC 06/11/21 Range/Units 09:58 WBC 7.5 (3.8-10.6) k/uL RBC 4.26 (3.80-5.40) m/uL Hgb 13.2 (11.4-16.0) gm/dL Hct 40.2 (34.0-46.0) % Plt Count 219 (150-450) k/uL Comprehensive Metabolic Panel 06/11/21 Range/Units 09:58 Sodium 138 (137-145) mmol/L Potassium 4.2 (3.5-5.1) mmol/L Chloride 108 H (98-107) mmol/L Carbon Dioxide 19 L (22-30) mmol/L BUN 12 (7-17) mg/dL Creatinine 0.54 (0.52-1.04) mg/dL Glucose 112 H (74-99) mg/dL Calcium 9.3 (8.4-10.2) mg/dL AST 28 (14-36) U/L ALT 35 H (4-34) U/L Alkaline Phosphatase 54 (38-126) U/L Total Protein 7.1 (6.3-8.2) g/dL Albumin 4.3 (3.5-5.0) g/dL Current Medications Generic Name Dose Route Start Last Admin Trade Name Freq PRN Reason Stop Dose Admin Aspirin 325 mg 06/12/21 09:00 Aspirin 325 Mg Tab PO DAILY [facility] Ergocalciferol 1,250 mcg 06/15/21 12:30 Ergocalciferol 1,250 Mcg (50,000 Iu) Capsule PO [facility] Heparin Sodium/Sodium Chloride 250 mls @ 10 mls/hr 06/11/21 10:00 06/12/21 03:19 25,000 unit/ Sodium Chloride IV 14.585 units/kg/hr .[facility] 15.216 mls/hr Titration Protocol 9.585 UNITS/KG/HR Diltiazem HCl 125 mg/ Sodium 125 mls @ 5 mls/hr 06/11/21 10:00 06/11/21 10:12 Chloride IV 5 mg/hr .Q24H [facility] 5 mls/hr Administration 5 MG/HR Sodium Chloride 1,000 mls @ 20 mls/hr 06/12/21 08:30 Saline 0.9% IV .[facility] Levothyroxine Sodium 75 mcg 06/12/21 06:30 06/12/21 06:48 Levothyroxine 75 Mcg Tab PO 75 mcg DAILY@0630 [facility] Administration Loratadine 10 mg 06/11/21 20:41 06/11/21 21:39 Loratadine 10 Mg Tab PO 10 mg DAILY PRN Administration Allergy Symptoms Lorazepam 0.5 mg 06/11/21 12:30 Lorazepam 0.5 Mg Tab PO TID PRN Anxiety Nitroglycerin 0.4 mg 06/11/21 11:19 Nitroglycerin Sl Tabs 0.4 Mg Tab SUBLINGUAL Q5M PRN Chest Pain Intake and Output 06/11/21 06/12/21 06/12/21 22:59 06:59 14:59 Intake Total 94.667 781.312 Balance 94.667 781.312 Intake: IV 160 0.9 160 Intake, IV Titration 94.667 141.312 Amount Diltiazem 125 mg In 40 Sodium Chloride 0.9% 100 ml @ 5 MG/HR 5 mls/hr IV .[facility] Rx#:[id number] Heparin Sod,Pork in 0.45% 94.667 101.312 NaCl 25,000 unit In 0.45 % NaCl 1 250ml.bag @ 9. 585 UNITS/KG/HR 10 mls/hr IV .[facility] Rx#: [id number] Oral 480 Other: # Voids 1 2 06/11/21 09:58 06/11/21 09:58 EKG Interpretations (text) Atrial fibrillation with moderately rapid ventricular response Assessment and Plan (1) Atrial fibrillation with RVR Current Visit: Yes Status: Acute Code(s): I48.91 - UNSPECIFIED ATRIAL FIBR ILLATION SNOMED Code(s): 577070472694870 (2) Hypothyroidism Current Visit: Yes Status: Acute Code(s): E03.9 - HYPOTHYROIDISM, UNSPECIFIED SNOMED Code(s): 46023808 Plan: We will proceed with a VISHNU cardioversion. Meanwhile we'll continue current medical therapy. May consider ablation in the near future
[2021-06-12] MEDS ORDERED: SODIUM CHLORIDE 0.9% 1,000 ML IV SCH (08:30)
[2021-06-12] MEDS: ASPIRIN 325 MG TAB PO SCH (08:42)
[2021-06-12 10:22] LABS: Basophils # (A) 0.1 k/uL (0-0.2); Basophils % (A) 1 %; Eosinophils # (A) 0.5 k/uL (0-0.7); Eosinophils % (A) 6 %; HCT 42.3 % (34.0-46.0); HGB 13.6 gm/dL (11.4-16.0); Lymphocytes % (A) 34 %; MCH 31.2 pg (25.0-35.0); MCHC 32.2 g/dL (31.0-37.0); Monocytes # (A) 0.3 k/uL (0-1.0); Monocytes % (A) 4 %; Neutrophils # (A) 4.9 k/uL (1.3-7.7); Neutrophils % (A) 55 %; Platelet Count 216 k/uL (150-450); RBC 4.36 m/uL (3.80-5.40); RDW 12.3 % (11.5-15.5); WBC 8.8 k/uL (3.8-10.6)
[2021-06-12] MEDS: HEPARIN SOD,PORK IN 0.45% NACL 25,000 UNIT in 0.45% NACL 1 250ML.BAG IV SCH (10:43)
[2021-06-12] MEDS: DILTIAZEM 125 MG in SODIUM CHLORIDE 0.9% 100 ML IV SCH (10:45)
[2021-06-12 12:09] LABS: African American GFR (CKD) >90 (>60 ml/min/1.73 sqM); Anion Gap 9 mmol/L; Blood Urea Nitrogen 9 mg/dL (7-17); Carbon Dioxide 20 mmol/L (22-30); Chloride 110 mmol/L (98-107); Glucose 109 mg/dL (74-99); Non-African American GFR(CKD) >90 (>60 ml/min/1.73 sqM); Potassium 4.1 mmol/L (3.5-5.1); Sodium 139 mmol/L (137-145)
--- NOTE | 2021-06-12 12:51 | P.PN ---
Subjective This 46-year-old white female known to the practice. She has a history of atrial fibrillation that's been cardioverted in the past. She is not on any anticoagulation and currently takes medications for anxiety and hypothyroidism. She reports having an upper respiratory tract infection last week but was: Negative. She woke up this morning with palpitations and her apple watch indicating she was in A. fib with a rate of 160s. She came emergency room seen evaluated by the ER doctor confirmed the findings of atrial fibrillation with RVR. Started her on a Cardizem drip, her heart rate is now in the 80s. She feels much improved. She denies any shortness of breath, chest pains, nausea or vomiting, or other symptomatology. Her upper respiratory tract infection is mostly resolved. She denies any recent alcohol use. She ordinarily sees Dr. Barlow per Dr. Bustamante. Vital signs are now stable blood pressure 112/70 pulse ox 90% on room air. Laboratory studies show normal CBC, INR is normal 0.9, chemistries are essentially normal. TSH is 0.804. Urine drug screen is normal, [place] virus screening negative. Troponin less than 0.012. Initial ER EKG today shows A. fib with RVR and chest x-ray showed no focal airspace disease. June 12, 2021: patient remains in atrial fibrillation. Her heart rate remains controlled with Cardizem drip.Cardiology note reviewed. They are planning cardioversion tomorrow. Heart rate and vitals remained stable. Patient remains on heparin drip for anticoagulation.Labs today are normal.Troponin times three were normal Patient remains comfortable. She denies any chest pain's, pressure, shortness breath, nausea, vomiting, diarrhea, or constipation. Denies urinary symptoms today. Objective - Vital Signs Vital signs: Vital Signs Temp 98.1 F 06/12/21 08:33 Pulse 106 H 06/12/21 08:33 Resp 17 06/12/21 08:33 BP 117/80 06/12/21 08:33 Pulse Ox 99 06/12/21 08:33 Intake & Output 06/11/21 06/12/21 06/12/21 18:59 06:59 18:59 Intake Total 930.000 122.75 Balance 930.000 122.75 Weight 104.326 kg 99.7 kg Intake: IV 160 0.9 160 Intake, IV Titration 290.000 122.75 Amount Diltiazem 125 mg In 40 122.75 Sodium Chloride 0.9% 100 ml @ 5 MG/HR 5 mls/hr IV .Q24H [facility] Rx#:[id number] Heparin Sod,Pork in 0.45% 250.000 NaCl 25,000 unit In 0.45 % NaCl 1 250ml.bag @ 9. 585 UNITS/KG/HR 10 mls/hr IV .Q24H [facility] Rx#: [id number] Oral 480 Other: # Voids 2 - Exam GENERAL: Well-appearing, well-nourished and in no acute distress. NECK: Normal range of motion, supple without lymphadenopathy or JVD, no thyromegaly LUNGS: Breath sounds clear to auscultation bilaterally and equal. No wheezes rales or rhonchi. HEART: Regular rate and irregular rhythm (AFIB with controlled rate) without murmurs, rubs or gallops.S1S2 Normal ABDOMEN: Soft, nontender, normoactive bowel sounds. No guarding, no rebound. No masses appreciated. EXTREMITIES: Normal range of motion, no pitting or edema. No clubbing or cyanosis. NEUROLOGICAL: Cranial nerves II through XII grossly intact. Normal speech, normal gait. PSYCH: Normal mood, normal affect. SKIN: Warm, Dry, normal turgor, no rashes or lesions noted. - Labs CBC & Chem 7: 06/12/21 09:56 06/12/21 09:56 Labs: Abnormal Lab Results - Last 24 Hours (Table) 06/11/21 06/12/21 06/12/21 Range/Units 16:11 01:02 09:56 APTT 33.9 H 40.4 H (22.0-30.0) sec Chloride 110 H (98-107) mmol/L Carbon Dioxide 20 L (22-30) mmol/L Glucose 109 H (74-99) mg/dL 06/12/21 Range/Units 09:56 APTT 46.6 H (22.0-30.0) sec Chloride (98-107) mmol/L Carbon Dioxide (22-30) mmol/L Glucose (74-99) mg/dL Assessment and Plan (1) Atrial fibrillation with RVR Current Visit: Yes Status: Acute Code(s): I48.91 - UNSPECIFIED ATRIAL FIBRILLATION SNOMED Code(s): 981634345954872 (2) Paroxysmal atrial fibrillation Current Visit: Yes Status: Acute Code(s): I48.0 - PAROXYSMAL ATRIAL FI BRILLATION SNOMED Code(s): 408658816 (3) Hypothyroidism Current Visit: Yes Status: Acute Code(s): E03.9 - HYPOTHYROIDISM, UNSPECIFIED SNOMED Code(s): 03716960 (4) Anxiety Current Visit: Yes Status: Acute Code(s): F41.9 - ANXIETY DISORDER, UNSPECIFIED SNOMED Code(s): 62856192 (5) Palpitations Current Visit: No Status: Acute Code(s): R00.2 - PALPITATIONS SNOMED Code(s): 94294725 Plan: She'll remain on heparin drip and Cardizem drip at this time. Cardiology planning cardioversion tomorrow. continue her home medications. Repeat labs in a.m. She will be reevaluated in the next 24 hours.
[2021-06-12 15:59] LABS: Chol/HDL Ratio 3.94 Ratio; LDL Cholesterol,Calculated 89.9 mg/dL (0.0-131.0)
[2021-06-13] MEDS: DILTIAZEM 125 MG in SODIUM CHLORIDE 0.9% 100 ML IV SCH (05:32)
[2021-06-13] MEDS: HEPARIN SOD,PORK IN 0.45% NACL 25,000 UNIT in 0.45% NACL 1 250ML.BAG IV SCH (05:34)
[2021-06-13] MEDS: LEVOTHYROXINE 75 MCG TAB PO SCH (08:33)
[2021-06-13 08:41] LABS: African American GFR (CKD) >90 (>60 ml/min/1.73 sqM); Anion Gap 7 mmol/L; Blood Urea Nitrogen 11 mg/dL (7-17); Calcium 9.2 mg/dL (8.4-10.2); Carbon Dioxide 20 mmol/L (22-30); Chloride 111 mmol/L (98-107); Glucose 109 mg/dL (74-99); Magnesium 1.7 mg/dL (1.6-2.3); Non-African American GFR(CKD) >90 (>60 ml/min/1.73 sqM); Potassium 4.1 mmol/L (3.5-5.1); Sodium 138 mmol/L (137-145)
[2021-06-13 08:44] LABS: Basophils # (A) 0.1 k/uL (0-0.2); Basophils % (A) 1 %; Eosinophils # (A) 0.6 k/uL (0-0.7); Eosinophils % (A) 8 %; Lymphocytes # (A) 3.2 k/uL (1.0-4.8); Lymphocytes % (A) 48 %; MCH 31.6 pg (25.0-35.0); MCHC 32.4 g/dL (31.0-37.0); MCV 97.6 fL (80.0-100.0); Mean Platelet Volume 9.4; Monocytes # (A) 0.3 k/uL (0-1.0); Monocytes % (A) 5 %; Neutrophils # (A) 2.5 k/uL (1.3-7.7); Neutrophils % (A) 37 %; Platelet Count 206 k/uL (150-450); RDW 12.4 % (11.5-15.5); WBC 6.8 k/uL (3.8-10.6)
--- NOTE | 2021-06-13 09:47 | P.PN ---
Subjective Progress Note Date: 06/13/21 Principal diagnosis: Paroxysmal atrial fibrillation The patient is a 46-year-old female patient with a past medical history significant for paroxysmal atrial fibrillation who was admitted to the hospital with heart racing and she was diagnosed was A. fib with RVR. Subsequently she was started on heparin IV as well as Cardizem IV. She was seen this morning. She continues to be in A. fib. I discussed with her the option off doing cardioversion as an outpatient or proceed with a VISHNU and cardioversion today beach she would like to go with a VISHNU and cardioversion. Objective - Vital Signs Vital signs: Vital Signs Temp 98.2 F 06/13/21 08:30 Pulse 76 06/13/21 08:30 Resp 18 06/13/21 08:30 BP 113/80 06/13/21 08:30 Pulse Ox 96 06/13/21 08:30 Intake & Output 06/12/21 06/13/21 06/13/21 18:59 06:59 18:59 Intake Total 684.43 665.597 Balance 684.43 665.597 Weight 99.7 kg Intake: IV 161.68 321.68 0.9 160 Diltiazem 125 mg In 40 40 Sodium Chloride 0.9% 100 ml @ 5 MG/HR 5 mls/hr IV .Q24H [facility] Rx#:[id number] Heparin Sod,Pork in 0.45% 121.68 121.68 NaCl 25,000 unit In 0.45 % NaCl 1 250ml.bag @ 9. 585 UNITS/KG/HR 10 mls/hr IV .Q24H [facility] Rx#: [id number] Intake, IV Titration 522.75 343.917 Amount Diltiazem 125 mg In 122.75 93.917 Sodium Chloride 0.9% 100 ml @ 5 MG/HR 5 mls/hr IV .Q24H [facility] Rx#:[id number] Heparin Sod,Pork in 0.45% 250 NaCl 25,000 unit In 0.45 % NaCl 1 250ml.bag @ 9. 585 UNITS/KG/HR 10 mls/hr IV .Q24H [facility] Rx#: [id number] Sodium Chloride 0.9% 1, 400 000 ml @ 20 mls/hr IV . Q24H [facility] Rx#:[id number] Other: # Voids 3 - Constitutional General appearance: Present: no acute distress - Respiratory Respiratory: bilateral: CTA - Cardiovascular Rhythm: irregularly irregular Heart sounds: normal: S1, S2 - Labs CBC & Chem 7: 06/13/21 07:41 06/13/21 07:41 Labs: Abnormal Lab Results - Last 24 Hours (Table) 06/12/21 06/12/21 06/13/21 Range/Units 09:56 09:56 07:41 APTT 46.6 H 62.6 H (22.0-30.0) sec Chloride 110 H (98-107) mmol/L Carbon Dioxide 20 L (22-30) mmol/L Glucose 109 H (74-99) mg/dL HDL Cholesterol 38.30 L (40.00-60.00) mg/dL 06/13/21 Range/Units 07:41 APTT (22.0-30.0) sec Chloride 111 H (98-107) mmol/L Carbon Dioxide 20 L (22-30) mmol/L Glucose 109 H (74-99) mg/dL HDL Cholesterol (40.00-60.00) mg/dL Assessment and Plan Assessment: Assessment #1 paroxysmal atrial fibrillation #2 A. fib with RVR Plan #1 continue IV heparin #2 proceed with a VISHNU cardioversion
[2021-06-13] MEDS: BENZOCAINE SPRAY 1 CAN MUCOUS MEM ONE ×2 (10:20→10:30)
[2021-06-13] MEDS ORDERED: PROPOFOL 10 MG/ML 20 ML VIAL IV ONE (10:27)
[2021-06-13] MEDS ORDERED: IV FLUID CONTINUATION 1,000 ML IV ONE (10:30)
[2021-06-13 10:58] VITALS: RESP 16
--- NOTE | 2021-06-13 11:08 | PCN ---
PROCEDURE NOTE CARDIOVERSION: DATE OF SERVICE: 06/13/2021 PERFORMING PHYSICIAN: Isaak Vega M.D. PROCEDURE PERFORMED: Successful cardioversion of atrial fibrillation to normal sinus mechanism using 150 joules on first attempt. INDICATION: Symptomatic atrial fibrillation, uncontrolled on medical treatment. PROCEDURE DESCRIPTION: After transesophageal echocardiogram was performed and intracardiac thrombus ruled out, we pursued cardioversion. The patient cardioverted from atrial fibrillation to normal sinus mechanism using 150 joules on first attempt. MMDARRICKL / ANDREIAN: [id number] /
--- NOTE | 2021-06-13 11:14 | ECHOT ---
TRANSESOPHAGEAL ECHOCARDIOGRAM DATE OF SERVICE: 06/13/2021 PERFORMING PHYSICIAN: Isaak Vega M.D. PROCEDURE PERFORMED: Transesophageal echocardiogram. INDICATION: Rule out intracardiac thrombus before cardioversion. COMPLICATIONS: None. LEVEL OF SEDATION: The procedure was performed using propofol with VP TALENT MANAGEMENT in the room. PROCEDURE DESCRIPTION: After obtaining informed consent, the patient was brought to the recovery room. Pulse oximetry and heart rate monitors were attached to the patient. Subsequently the transesophageal echocardiogram was advanced through the bite guard to the mid esophagus, where 2D echocardiogram images as well as color Doppler images of various cardiac structures were performed. The transesophageal echocardiogram was performed using a 2D echo as well as color Doppler, pulse Doppler and continuous-wave Doppler. The procedure was completed without any complication. FINDINGS: Left ventricular dimension and systolic function appeared to be within normal limits. The ejection fraction appeared to be in the range of 50% to 55%. Right ventricle appeared to be of normal size and function. The left atrium appeared to be within normal limits for dimension. The left atrial appendage appeared to be free from any thrombus. The interatrial septum appeared to be hyperdynamic without any evidence of shunt. The aortic valve was not well visualized, but there was no stenosis or regurgitation. The mitral valve showed only evidence of mild MR. CONCLUSION: 1. No evidence of left atrial appendage thrombus. 2. Intact interatrial septum without any shunt. 3. Normal left ventricular dimension and systolic function. 4. Normal cardiac chamber sizes. 5. Normal intracardiac valves. MMODL / IJN: [id number] /
[2021-06-13] MEDS ORDERED: APIXABAN 5 MG TAB PO SCH (11:15)
[2021-06-13] MEDS ORDERED: METOPROLOL SUCCINATE (ER) 25 MG TAB.ER.24H PO SCH (11:15)
[2021-06-13] MEDS: ASPIRIN 325 MG TAB PO SCH (12:14)
[2021-06-13 16:45] VITALS: TEMP 98.1
[2021-06-13 16:48] VITALS: BP 123/81; PULSE 59
--- NOTE | 2021-06-13 17:43 | P.PN ---
Subjective Progress Note Date: 06/13/21 Principal diagnosis: Atrial fibrillation with RVR 46-year-old female well-known to the practice presented emergency room on 06/11/2021 for evaluation of feeling that her heart was racing. Patient has past medical history is significant for intermittent atrial fibrillation. Sissy ent had not been on anticoagulation up until hospitalization. Patient was started on a Cardizem drip in the emergency room which was able to reduce her heart rate into the 80s. Patient stated at that time she is feeling much better. Patient underwent VISHNU with cardioversion in which she was shocked with 150 J one time each converted her to normal sinus rhythm. Currently patient is resting comfortably in bed at this time with no complaints of chest pain, shortness of breath or difficulty breathing, fatigue, nausea vomiting or diarrhea. She states that she wants to go home and rest told by Dr. Vega that she could has okay with Dr. Lira. Patient vital signs are stable at this time, she remains in normal sinus rhythm in the 60s, respiratory rate is 1618 oxygen saturation of 97%. She has been started on a beta quentin and oral anticoagulation which will be continued with discharge. Objective - Vital Signs Vital signs: Vital Signs Temp 98.1 F 06/13/21 11:30 Pulse 59 L 06/13/21 12:30 Resp 16 06/13/21 12:30 BP 123/81 06/13/21 12:30 Pulse Ox 97 06/13/21 12:30 Intake & Output 06/12/21 06/13/21 06/13/21 18:59 06:59 18:59 Intake Total 684.43 665.597 255.156 Balance 684.43 665.597 255.156 Weight 99.7 kg Intake: IV 161.68 321.68 100 0.9 160 Diltiazem 125 mg In 40 40 Sodium Chloride 0.9% 100 ml @ 5 MG/HR 5 mls/hr IV .Q24H [facility] Rx#:[id number] Heparin Sod,Pork in 0.45% 121.68 121.68 NaCl 25,000 unit In 0.45 % NaCl 1 250ml.bag @ 9. 585 UNITS/KG/HR 10 mls/hr IV .Q24H [facility] Rx#: [id number] Intake, IV Titration 522.75 343.917 155.156 Amount Diltiazem 125 mg In 122.75 93.917 38.5 Sodium Chloride 0.9% 100 ml @ 5 MG/HR 5 mls/hr IV .Q24H [facility] Rx#:[id number] Heparin Sod,Pork in 0.45% 250 116.656 NaCl 25,000 unit In 0.45 % NaCl 1 250ml.bag @ 9. 585 UNITS/KG/HR 10 mls/hr IV .Q24H [facility] Rx#: [id number] Sodium Chloride 0.9% 1, 400 000 ml @ 20 mls/hr IV . Q24H [facility] Rx#:[id number] Other: # Voids 3 2 - Exam GENERAL: Well-appearing, well-nourished and in no acute distress. HEAD: Atraumatic, normocephalic. EYES: Pupils equal round and reactive to light, extraocular movements intact, sclera anicteric, conjunctiva are normal. ENT:nares patent, oropharynx clear without exudates. Moist mucous membranes. NECK: Normal range of motion, supple without lymphadenopathy or JVD, no thyromegaly LUNGS: Breath sounds clear to auscultation bilaterally and equal. No wheezes rales or rhonchi. HEART: Regular rate and rhythm without murmurs, rubs or gallops.S1S2 Normal ABDOMEN: Soft, nontender, normoactive bowel sounds. No guarding, no rebound. No masses appreciated. EXTREMITIES: Normal range of motion, no pitting or edema. No clubbing or cyanosis. NEUROLOGICAL: Cranial nerves II through XII grossly intact. Normal speech, normal gait. PSYCH: Normal mood, normal affect. SKIN: Warm, Dry, normal turgor, no rashes or lesions noted. - Labs CBC & Chem 7: 06/13/21 07:41 06/13/21 07:41 Labs: Abnormal Lab Results - Last 24 Hours (Table) 06/13/21 06/13/21 Range/Units 07:41 07:41 APTT 62.6 H (22.0-30.0) sec Chloride 111 H (98-107) mmol/L Carbon Dioxide 20 L (22-30) mmol/L Glucose 109 H (74-99) mg/dL Assessment and Plan (1) Anxiety Current Visit: Yes Status: Acute Code(s): F41.9 - ANXIETY DISORDER, UNSPECIFIED SNOMED Code(s): 85855670 (2) Atrial fibrillation with RVR Current Visit: Yes Status: Acute Code(s): I48.91 - UNSPECIFIED ATRIAL FIBRILLATION SNOMED Code(s): 656198899441047 (3) Hypothyroidism Current Visit: Yes Status: Acute Code(s): E03.9 - HYPOTHYROIDISM, UNSPECIFIED SNOMED Code(s): 21213422 (4) Paroxysmal atrial fibrillation Current Visit: Yes Status: Acute Code(s): I48.0 - PAROXYSMAL ATRIAL FIBRILLATION SNOMED Code(s): 650643172 (5) Palpitations Current Visit: No Status: Acute Code(s): R00.2 - PALPITATIONS SNOMED Code(s): 45922305 Plan: We'll plan on discharge home tonight Patient will be sent home with a beta quentin and oral anticoagulation Home medications will be restarted Patient will follow up with PCP in 1-2 days and cardiology in 1 week. Time with Patient: Greater than 30
--- NOTE | 2021-06-13 18:18 | P.DS ---
Providers Date of admission: 06/11/21 11:20 Expected date of discharge: 06/13/21 Attending physician: Marty Chaparro Consults: 06/11/21 11:20 Consult Physician Urgent Consulting Provider: [facility] Consult Reason/Comments: A. fib with rapid ventricular response Do you want consulting provider notified?: Yes Primary care physician: Adolfo Lira - Discharge Diagnosis(es) (1) Anxiety Current Visit: Yes Status: Acute (2) Atrial fibrillation with RVR Current Visit: Yes Status: Acute (3) Hypothyroidism Current Visit: Yes Status: Acute (4) Paroxysmal atrial fibrillation Current Visit: Yes Status: Acute (5) Palpitations Current Visit: No Status: Acute Hospital Course: Procedural female patient in the practice presented emergency room on 06/11/2021 and she woke up feeling her heart racing. Patient presented emergency room was found to be in A. fib RVR in which she was subsequent started on Cardizem IV. Patient's heart rate was reduced into the 80s she stated feeling much better at that time. In 06/13/2021 patient underwent a VISHNU with cardioversion and was successfully converted to sinus rhythm after 1 shock of 150 J. Vital signs are stable at this time heart rate is controlled and patient elected to go home. Discussed this with Dr. spencer and patient states Dr. patton that she could go home tonight if okay with him. Oral anticoagulation and beta quentin will be ordered at discharge and will continue home medications at that time. Assessment: A. fib RVR just converted to normal sinus rhythm after cardioversion. Procedures: Cardioversion Patient Condition at Discharge: Stable Plan - Discharge Summary Discharge Rx Participant: Yes New Discharge Prescriptions: No Action LORazepam [Ativan] 0.5 mg PO TID PRN PRN Reason: Anxiety guaiFENesin [Mucinex] 600 mg PO BID PRN PRN Reason: Congestion Ergocalciferol [Vitamin D2 (1250 Mcg = 51436 Iu)] 1,250 mcg PO WE Levothyroxine Sodium [Synthroid] 75 mcg PO DAILY Discharge Medication List LORazepam [Ativan] 0.5 mg PO TID PRN 09/17/17 [History] Ergocalciferol [Vitamin D2 (1250 Mcg = 36874 Iu)] 1,250 mcg PO WE 06/11/21 [History] Levothyroxine Sodium [Synthroid] 75 mcg PO DAILY 06/11/21 [History] guaiFENesin [Mucinex] 600 mg PO BID PRN 06/11/21 [History] Apixaban [Eliquis] 1 PO BID 06/13/21 [History] Metoprolol Succinate (ER) [Toprol Xl] 25 mg PO DAILY 06/13/21 [History] Follow up Appointment(s)/Referral(s): Isaak Vega MD [STAFF PHYSICIAN] - 1 Week Adolfo Lira Jr, DO [Primary Care Provider] - 1-2 days Activity/Diet/Wound Care/Special Instructions: Activity as tolerated Regular diet but to minimize caffeine Discharge Disposition: HOME SELF-CARE
[2021-06-15] MEDS ORDERED: ERGOCALCIFEROL 1,250 MCG (50,000 IU) CAPSULE PO SCH (12:30)
== END 2021-06-13 19:33 | disposition home or self-care (01) | DRG 310 ==
LOC: EC 09:30 → 3SCARD 11:20
PROVIDERS: ADMIT Family Medicine; ATTEND Family Medicine
PROC: B246ZZ4 Ultrasonography of Right and Left Heart, Transesophageal (ICD-10-PCS; 2021-06-13)
PROC: 5A2204Z Restoration of Cardiac Rhythm, Single (ICD-10-PCS; principal; 2021-06-13 09:25)
DX: I48.0 Paroxysmal atrial fibrillation (principal); E03.9 Hypothyroidism, unspecified; F17.210 Nicotine dependence, cigarettes, uncomplicated; I34.0 Nonrheumatic mitral (valve) insufficiency; I83.90 Asymptomatic varicose veins of unspecified lower extremity; F41.9 Anxiety disorder, unspecified; Z20.822 Contact with and (suspected) exposure to COVID-19; J06.9 Acute upper respiratory infection, unspecified; R00.2 Palpitations; Z79.890 Hormone replacement therapy; Z79.899 Other long term (current) drug therapy; Z90.710 Acquired absence of both cervix and uterus; Z87.19 Personal history of other diseases of the digestive system; Z88.8 Allergy status to other drugs, medicaments and biological substances; Z98.890 Other specified postprocedural states
CPT/HCPCS: 36415; 71046; 80048; 80053; 80061; 80306; 83735; 84443; 84484; 85025; 85610; 85730; 87635; 92960; 93005; 93312; 93320; 93325; 96374; 96375; 99291

== ENCOUNTER 2022-08-21 06:42 | Emergency (ER) | payer BC, OTHER ==
[2022-08-21 06:47] VITALS: TEMP 97.7
[2022-08-21] MEDS ORDERED: DILTIAZEM DRIP BOLUS FROM BAG 1 MG SOLN IV ONE (07:01)
[2022-08-21 07:28] VITALS: RESP 18
[2022-08-21] MEDS ORDERED: DILTIAZEM 125 MG in SODIUM CHLORIDE 0.9% 100 ML IV SCH (07:30)
--- NOTE | 2022-08-21 07:33 | XR ---
EXAMINATION TYPE: XR chest 2V DATE OF EXAM: 08/21/2022 7:20 AM COMPARISON: Chest radiographs from 2520 TECHNIQUE: XR chest 2V Frontal and lateral views of the chest. CLINICAL INDICATION:Female, 47 years old with history of dysrhythmia; FINDINGS: Lungs/Pleura: Low lung volumes are present. There is no evidence of pleural effusion, focal consolida tion, or pneumothorax. Pulmonary vascularity: Unremarkable. Heart/mediastinum: Cardiomediastinal silhouette is enlarged and stable. Musculoskeletal: No acute osseous pathology. IMPRESSION: Low lung volumes with cardiomegaly, No acute cardiopulmonary disease/process. Correlate with serum BN P for congestive heart failure.
[2022-08-21 07:34] LABS: Basophils # (A) 0.1 k/uL (0-0.2); Basophils % (A) 1 %; Eosinophils # (A) 0.6 k/uL (0-0.7); Eosinophils % (A) 8 %; HCT 42.9 % (34.0-46.0); HGB 13.9 gm/dL (11.4-16.0); Lymphocytes % (A) 38 %; MCH 30.6 pg (25.0-35.0); MCHC 32.4 g/dL (31.0-37.0); MCV 94.4 fL (80.0-100.0); Mean Platelet Volume 8.9; Monocytes # (A) 0.3 k/uL (0-1.0); Monocytes % (A) 4 %; Neutrophils # (A) 3.8 k/uL (1.3-7.7); Neutrophils % (A) 48 %; Platelet Count 262 k/uL (150-450); RBC 4.54 m/uL (3.80-5.40); RDW 12.8 % (11.5-15.5); WBC 7.8 k/uL (3.8-10.6)
--- NOTE | 2022-08-21 07:37 | ED ---
Arrhythmia/Palpitations HPI - General Chief Complaint: Arrhythmia/Palpitations Stated Complaint: AFIB Time Seen by Provider: 08/21/22 06:55 Source: patient, RN notes reviewed Mode of arrival: wheelchair Limitations: no limitations - History of Present Illness Initial Comments: 47-year-old female presents emergency Department chief complaint of chest disc omfort and palpitations. Patient states that she woke up and had this feeling. She does have a history of HIV fibrillation on metoprolol currently. Patient states she is not on blood thinners. Patient she was in the past. Patient states he was in May 2021 had a cardioversion. Patient states she saw Dr. Vega when she was admitted. Patient states she feels like her heart is racing, skipping beat denies any fevers chills no cough or cold like symptoms no leg. Leg swelling. Denies any other associated symptoms. - Related Data Home Medications Medication Instructions Recorded Confirmed LORazepam [Ativan] 0.5 mg PO TID PRN 09/17/17 06/11/21 Ergocalciferol [Vitamin D2 (1250 1,250 mcg PO WE 06/11/21 06/11/21 Mcg = 24419 Iu)] Levothyroxine Sodium [Synthroid] 75 mcg PO DAILY 06/11/21 06/11/21 guaiFENesin [Mucinex] 600 mg PO BID PRN 06/11/21 06/11/21 Apixaban [Eliquis] 1 PO BID 06/13/21 Metoprolol Succinate (ER) [Toprol 25 mg PO DAILY 06/13/21 06/13/21 Xl] Previous Rx's Medication Instructions Recorded Apixaban [Eliquis Starter Pack 0 mg PO DIRECTED 30 Days #1 08/21/22 (for VTE)] packet Allergies Allergy/AdvReac Type Severity Reaction Status Date / Time prednisone Allergy Rash/Hives Verified 08/21/22 06:47 Review of Systems ROS Statement: Those systems with pertinent positive or pertinent negative responses have been documented in the HPI. ROS Other: All systems not noted in ROS Statement are negative. Past Medical History Past Medical History: Atrial Fibrillation, Thyroid Disorder Additional Past Medical History / Comment(s): Incisional Hernia. History of Any Multi-Drug Resistant Organisms: None Reported Past Surgical History: Hernia Repair, Hysterectomy, Tonsillectomy Additional Past Surgical History / Comment(s): Right inguinal hernia repair, Cardioversion. Past Anesthesia/Blood Transfusion Reactions: Postoperative Nausea & Vomiting (PONV) Additional Past Anesthesia/Blood Transfusion Reaction / Comment(s): Pt received blood with her hysterectomy- no reaction Past Psychological History: Anxiety Smoking Status: Current every day smoker Past Alcohol Use History: None Reported Past Drug Use History: None Reported - Past Family History Father Family Medical History: No Reported History Additional Family Medical History / Comment(s): . Mother Family Medical History: No Reported History Additional Family Medical History / Comment(s): . General Exam Limitations: no limitations General appearance: alert, in no apparent distress Head exam: Present: atraumatic, normocephalic, normal inspection Eye exam: Present: normal appearance, PERRL, EOMI. Absent: scleral icterus, conjunctival injection, periorbital swelling ENT exam: Present: normal exam, normal oropharynx, mucous membranes moist Neck exam: Present: normal inspection, full ROM. Absent: tenderness, menin gismus, lymphadenopathy Respiratory exam: Present: normal lung sounds bilaterally. Absent: respiratory distress, wheezes, rales, rhonchi, stridor Cardiovascular Exam: Present: tachycardia, irregular rhythm, normal heart sounds. Absent: regular rate, normal rhythm, systolic murmur, diastolic murmur, rubs, gallop, clicks GI/Abdominal exam: Present: soft, normal bowel sounds. Absent: distended, tenderness, guarding, rebound, rigid Course Vital Signs 08/21/22 08/21/22 08/21/22 06:42 07:27 07:30 Temperature 97.7 F Pulse Rate 120 H 115 H 89 Respiratory 16 18 18 Rate Blood Pressure 135/87 127/89 109/85 O2 Sat by Pulse 98 96 97 Oximetry 08/21/22 09:05 Temperature Pulse Rate 72 Respiratory Rate Blood Pressure 117/85 O2 Sat by Pulse 98 Oximetry EKG Findings - EKG Comments: EKG Findings:: EKG performed at 6:52 A. fib with RVR rate 112 QRS 89 QT/QTC 300/366 - EKG Results: EKG: interpreted by JUANITO Medical Decision Making - Medical Decision Making Was pt. sent in by a medical professional or institution (, PA, [employer], urgent care, hospital, or prison...) When possible be specific @ -No Did you speak to anyone other than the patient for history (EMS, parent, family, police, friend...)? What history was obtained from this source @ -No Did you review nursing and triage notes (agree or disagree)? Why? @ -I reviewed and agree with nursing and triage notes Were old charts reviewed (outside hosp., previous admission, EMS record, old EKG , old radiological studies, urgent care reports/EKG's, prison records)? Report findings @ -No old charts were reviewed Differential Diagnosis (chest pain, altered mental status, abdominal pain women, abdominal pain men, vaginal bleeding, weakness, fever, dyspnea, syncope, headache, dizziness, GI bleed, back pain, seizure, CVA, palpatations, mental health, musculoskeletal)? @ -Differential Palpitations Ventricular arrhythmias, atrial arrhythmias, myocardial infarction, anemia, thyrotoxicosis, electrolyte imbalance, hypokalemia, pulmonary embolism, pulmonary disease, drugs, alcohol, anxiety, stress.... This is not meant to be an all-inclusive list.e EKG interpreted by me (3pts min.). @ -As above X-rays interpreted by me (1pt min.). @ -Chest x-ray shows no acute cardiopulmonary process CT interpreted by me (1pt min.). @ -None done U/S interpreted by me (1pt. min.). @ -None done What testing was considered but not performed or refused? (CT, X-rays, U/S, labs)? Why? @ -None What meds were considered but not given or refused? Why? @ -None Did you discuss the management of the patient with other professionals (professionals i.e. , PA, [employer], lab, RT, psych nurse, child protective services social worker, lawyers, teacher, correctional security officer, showcase maker)? Give summary @ -No Was smoking cessation discussed for >3mins.? @ -No Was critical care preformed (if so, how long)? @ -No Were there social determinants of health that impacted care today? How? (Homelessness, low income, unemployed, alcoholism, drug addiction, transportation, low edu. Level, literacy, decrease access to med. care, long term, rehab)? @ -No Was there de-escalation of care discussed even if they declined (Discuss DNR or withdrawal of care, Hospice)? DNR status @ -No What co-morbidities impacted this encounter? (DM, HTN, Smoking, COPD, CAD, Canc er, CVA, ARF, Chemo, Hep., AIDS, mental health diagnosis, sleep apnea, morbid obesity)? @ -A. fib Was patient admitted / discharged? Hospital course, mention meds given and route, prescriptions, significant lab abnormalities, going to OR and other pertinent info. @ -Discharged I did discuss case with Dr. Alicea recommends patient to be star artemio on eliquis, continue metoprolol as prescribed. Patient will follow-up in office tomorrow Undiagnosed new problem with uncertain prognosis? @ -No Drug Therapy requiring intensive monitoring for toxicity (Heparin, Nitro, Insulin, Cardizem)? @ -Cardizem Were any procedures done? @ -No Diagnosis/symptom? @ -atrial fibrillation Acute, or Chronic, or Acute on Chronic? @ -Acute on chronic Uncomplicated (without systemic symptoms) or Complicated (systemic symptoms)? @ -Uncomplicated Side effects of treatment? @ -No Exacerbation, Progression, or Severe Exacerbation? @ -No Poses a threat to life or bodily function? How? (Chest pain, USA, CT, pneumonia, PE, COPD, DKA, ARF, appy, cholecystitis, CVA, Diverticulitis, Homicidal, Suicidal, threat to staff... and all critical care pts) @ -No - Lab Data Result diagrams: 08/21/22 07:08 08/21/22 07:08 Lab Results 08/21/22 08/21/22 08/21/22 Range/Units 07:08 07:08 07:08 WBC 7.8 (3.8-10.6) k/uL RBC 4.54 (3.80-5.40) m/uL Hgb 13.9 (11.4-16.0) gm/dL Hct 42.9 (34.0-46.0) % MCV 94.4 (80.0-100.0) fL MCH 30.6 (25.0-35.0) pg MCHC 32.4 (31.0-37.0) g/dL RDW 12.8 (11.5-15.5) % Plt Count 262 (150-450) k/uL MPV 8.9 Neutrophils % 48 % Lymphocytes % 38 % Monocytes % 4 % Eosinophils % 8 % Basophils % 1 % Neutrophils # 3.8 (1.3-7.7) k/uL Lymphocytes # 3.0 (1.0-4.8) k/uL Monocytes # 0.3 (0-1.0) k/uL Eosinophils # 0.6 (0-0.7) k/uL Basophils # 0.1 (0-0.2) k/uL PT 9.6 (9.0-12.0) sec INR 0.9 (<1.2) APTT 23.9 (22.0-30.0) sec Sodium 139 (137-145) mmol/L Potassium 4.5 (3.5-5.1) mmol/L Chloride 108 H (98-107) mmol/L Carbon Dioxide 23 (22-30) mmol/L Anion Gap 8 mmol/L BUN 10 (7-17) mg/dL Creatinine 0.58 (0.52-1.04) mg/dL Est GFR (CKD-EPI)AfAm >90 (>60 ml/min/1.73 sqM) Est GFR (CKD-EPI)NonAf >90 (>60 ml/min/1.73 sqM) Glucose 108 H (74-99) mg/dL Calcium 9.5 (8.4-10.2) mg/dL Magnesium 1.8 (1.6-2.3) mg/dL Total Bilirubin 0.4 (0.2-1.3) mg/dL AST 23 (14-36) U/L ALT 22 (4-34) U/L Alkaline Phosphatase 67 (38-126) U/L Troponin I (0.000-0.034) ng/mL Total Protein 7.2 (6.3-8.2) g/dL Albumin 4.2 (3.5-5.0) g/dL 08/21/22 Range/Units 07:08 WBC (3.8-10.6) k/uL RBC (3.80-5.40) m/uL Hgb (11.4-16.0) gm/dL Hct (34.0-46.0) % MCV (80.0-100.0) fL MCH (25.0-35.0) pg MCHC (31.0-37.0) g/dL RDW (11.5-15.5) % Plt Count (150-450) k/uL MPV Neutrophils % % Lymphocytes % % Monocytes % % Eosinophils % % Basophils % % Neutrophils # (1.3-7.7) k/uL Lymphocytes # (1.0-4.8) k/uL Monocytes # (0-1.0) k/uL Eosinophils # (0-0.7) k/uL Basophils # (0-0.2) k/uL PT (9.0-12.0) sec INR (<1.2) APTT (22.0-30.0) sec Sodium (137-145) mmol/L Potassium (3.5-5.1) mmol/L Chloride (98-107) mmol/L Carbon Dioxide (22-30) mmol/L Anion Gap mmol/L BUN (7-17) mg/dL Creatinine (0.52-1.04) mg/dL Est GFR (CKD-EPI)AfAm (>60 ml/min/1.73 sqM) Est GFR (CKD-EPI)NonAf (>60 ml/min/1.73 sqM) Glucose (74-99) mg/dL Calcium (8.4-10.2) mg/dL Magnesium (1.6-2.3) mg/dL Total Bilirubin (0.2-1.3) mg/dL AST (14-36) U/L ALT (4-34) U/L Alkaline Phosphatase (38-126) U/L Troponin I <0.012 (0.000-0.034) ng/mL Total Protein (6.3-8.2) g/dL Albumin (3.5-5.0) g/dL Disposition Clinical Impression: Atrial fibrillation, Atrial fibrillation with RVR Disposition: HOME SELF-CARE Instructions (If sedation given, give patient instructions): A-fib (Atrial Fibrillation) (ED) Additional Instructions: Please return to the Emergency Department if symptoms worsen or any other concerns. follow-up in office tomorrow Prescriptions: Apixaban [Eliquis Starter Pack (for VTE)] 0 mg PO DIRECTED 30 Days #1 packet Is patient prescribed a controlled substance at d/c from ED?: No Referrals: Adolfo Lira Jr, DO [Doctor of Osteopathic Medicine] - 1-2 days Isaak eVga MD [STAFF PHYSICIAN] - 1-2 days Time of Disposition: 09:19
[2022-08-21 07:49] LABS: ALT 22 U/L (4-34); AST 23 U/L (14-36); African American GFR (CKD) >90 (>60 ml/min/1.73 sqM); Albumin 4.2 g/dL (3.5-5.0); Alkaline Phosphatase 67 U/L (38-126); Anion Gap 8 mmol/L; Blood Urea Nitrogen 10 mg/dL (7-17); Calcium 9.5 mg/dL (8.4-10.2); Carbon Dioxide 23 mmol/L (22-30); Chloride 108 mmol/L (98-107); Glucose 108 mg/dL (74-99); INR 0.9 (<1.2); Magnesium 1.8 mg/dL (1.6-2.3); Non-African American GFR(CKD) >90 (>60 ml/min/1.73 sqM); Partial Thromboplastin Time 23.9 sec (22.0-30.0); Potassium 4.5 mmol/L (3.5-5.1); Prothrombin Time 9.6 sec (9.0-12.0); Sodium 139 mmol/L (137-145); Total Bilirubin 0.4 mg/dL (0.2-1.3); Total Protein 7.2 g/dL (6.3-8.2)
[2022-08-21] MEDS ORDERED: APIXABAN 5 MG TAB PO STA (09:12)
[2022-08-21 10:50] VITALS: PULSE 88
[2022-08-21 12:06] VITALS: BP 138/95
--- NOTE | 2022-08-21 12:10 | P.CRDCN ---
History of Present Illness Consult date: 08/21/22 History of present illness: HISTORY OF PRESENT ILLNESS: This is a 47-year-old female with a past medical history significant for hypothyroidism and paroxysmal atrial fibrillation. Patient follows in the office with Dr. Vega. We have been asked to see the patient in consultation for atrial fibrillation. Patient examined at the bedside in the ER. Patient presented to the emergency room with a chief complaint of palpitations. She also reports having some shortness of breath and lightheadedness at home. The patient was found to be in A. fib with RVR. At the time of my examination, the patient remains in atrial fibrillation with controlled ventricular rate. She denies any chest pain or pressure. She denies any shortness of breath. Patient reports a history of 6 cardioversions with the most recent being in May 2021. She states she was told by Dr. Vega next time she went into atrial fibrillation she would likely require a ablation. She reports smoking a couple cigarettes a day. She reports rare alcohol use. She states she does not drink caffeine. * EKG reveals atrial fibrillation with mild RVR * Chest xray low lung volumes with cardiomegaly. No acute process. * Laboratory data: WBC 7.8. Hemoglobin 13.9. Platelet count 262. Sodium 139. Potassium 4.5. BUN 10. Creatinine 0.58. * Current home cardiac medications include metoprolol succinate 25 mg at night REVIEW OF SYSTEMS: At the time of my exam: CONSTITUTIONAL: Denies fever or chills. HEENT: Denies blurred vision, vision changes, or eye pain. Denies hemoptysis CARDIOVASCULAR: Denies chest pain. Denies orthopnea. Denies PND. Denies palpitations RESPIRATORY: Denies shortness of breath. GASTROINTESTINAL: Denies abdominal pain. Denies nausea or vomiting. HEMATOLOGIC: Denies bleeding disorders. GENITOURINARY: Denies any blood in urine. SKIN: Denies pruitis. Denies rash. PHYSICAL EXAM: VITAL SIGNS: Reviewed. GENERAL: Well-developed in no acute distress. HEENT: Head is normocephalic. Pupils are equal, round. Sclerae anicteric. Mucous membranes of the mouth are moist. Neck supple. No JVD or thyromegaly LUNGS: Respirations even and unlabored. Lungs essentially clear to auscultation bilaterally. HEART: Irregular rate and rhythm. S1 and S2 heard. ABDOMEN: Soft. Nondistended. Nontender. EXTREMITIES: Normal range of motion. No clubbing or cyanosis. Peripheral pulses intact. No lower extremity edema NEUROLOGIC: Awake and alert. Oriented x 3. ASSESSMENT: Palpitations Paroxysmal atrial fibrillation with mild RVR History of cardioversion, 6 per patient, most recently in May 2021 Hypothyroidism PLAN: Increase metoprolol to 25 mg twice a day Patient's instructed to resume her Eliquis 5mg twice a day. Patient states she does not require a prescription for this as she has Eliquis at home Discussed cardioversion versus ablation. Recommend ablation as patient has had multiple cardioversions. Patient agreeable and not interested in CV at this time. She may be discharged home today and follow up with Dr. Vega this week to discuss ablation We will sign off. Please reconsult if needed. Nurse practitioner note has been reviewed by physician. Signing provider agrees with the documented findings, assessment, and plan of care. Past Medical History Past Medical History: Atrial Fibrillation, Thyroid Disorder Additional Past Medical History / Comment(s): Incisional Hernia. History of Any Multi-Drug Resistant Organisms: None Reported Past Surgical History: Hernia Repair, Hysterectomy, Tonsillectomy Additional Past Surgical History / Comment(s): Right inguinal hernia repair, Cardioversion. Past Anesthesia/Blood Transfusion Reactions: Postoperative Nausea & Vomiting (PONV) Additional Past Anesthesia/Blood Transfusion Reaction / Comment(s): Pt received blood with her hysterectomy- no reaction Past Psychological History: Anxiety Smoking Status: Current every day smoker Past Alcohol Use History: None Reported Past Drug Use History: None Reported - Past Family History Father Family Medical History: No Reported History Additional Family Medical History / Comment(s): . Mother Family Medical History: No Reported History Additional Family Medical History / Comment(s): . Medications and Allergies Home Medications Medication Instructions Recorded Confirmed Type Levothyroxine Sodium [Synthroid] 75 mcg PO DAILY 06/11/21 08/21/22 History Metoprolol Succinate (ER) [Toprol 25 mg PO HS 06/13/21 08/21/22 History Xl] Apixaban [Eliquis Starter Pack 0 mg PO DIRECTED 30 Days #1 08/21/22 Rx (for VTE)] packet Allergies Allergy/AdvReac Type Severity Reaction Status Date / Time prednisone Allergy Rash/Hives Verified 08/21/22 09:59 Physical Exam Vitals: Vital Signs Temp Pulse Resp BP Pulse Ox 08/21/22 10:48 88 134/97 98 08/21/22 09:05 72 117/85 98 08/21/22 07:30 89 18 109/85 97 08/21/22 07:27 115 H 18 127/89 96 08/21/22 06:42 97.7 F 120 H 16 135/87 98 Intake and Output 08/20/22 08/21/22 08/21/22 22:59 06:59 14:59 Intake Total 9.083 Balance 9.083 Intake: Intake, IV Titration 9.083 Amount Diltiazem 125 mg In 9.083 Sodium Chloride 0.9% 100 ml @ 5 MG/HR 5 mls/hr IV .Q24H [facility] Rx#:[id number] Other: Weight 104.326 kg Results 08/21/22 07:08 08/21/22 07:08 Cardiac Enzymes 08/21/22 08/21/22 Range/Units 07:08 07:08 AST 23 (14-36) U/L Troponin I <0.012 (0.000-0.034) ng/mL Coagulation 08/21/22 Range/Units 07:08 PT 9.6 (9.0-12.0) sec APTT 23.9 (22.0-30.0) sec CBC 08/21/22 Range/Units 07:08 WBC 7.8 (3.8-10.6) k/uL RBC 4.54 (3.80-5.40) m/uL Hgb 13.9 (11.4-16.0) gm/dL Hct 42.9 (34.0-46.0) % Plt Count 262 (150-450) k/uL Comprehensive Metabolic Panel 08/21/22 Range/Units 07:08 Sodium 139 (137-145) mmol/L Potassium 4.5 (3.5-5.1) mmol/L Chloride 108 H (98-107) mmol/L Carbon Dioxide 23 (22-30) mmol/L BUN 10 (7-17) mg/dL Creatinine 0.58 (0.52-1.04) mg/dL Glucose 108 H (74-99) mg/dL Calcium 9.5 (8.4-10.2) mg/dL AST 23 (14-36) U/L ALT 22 (4-34) U/L Alkaline Phosphatase 67 (38-126) U/L Total Protein 7.2 (6.3-8.2) g/dL Albumin 4.2 (3.5-5.0) g/dL Current Medications Generic Name Dose Route Start Last Admin Trade Name Freq PRN Reason Stop Dose Admin Diltiazem HCl 125 mg/ Sodium 125 mls @ 5 mls/hr 08/21/22 07:30 08/21/22 09:17 Chloride IV 0 mg/hr .Q24H [facility] 0 mls/hr Infusion 5 MG/HR Intake and Output 08/20/22 08/21/22 08/21/22 22:59 06:59 14:59 Intake Total 9.083 Balance 9.083 Intake: Intake, IV Titration 9.083 Amount Diltiazem 125 mg In 9.083 Sodium Chloride 0.9% 100 ml @ 5 MG/HR 5 mls/hr IV .Q24H [facility] Rx#:[id number] Other: Weight 104.326 kg 08/21/22 07:08 08/21/22 07:08
[2022-08-21] MEDS ORDERED: METOPROLOL SUCCINATE (ER) 25 MG TAB.ER.24H PO SCH (21:00)
== END 2022-08-21 12:11 | disposition home or self-care (01) ==
LOC: EC 06:42
DX: I48.0 Paroxysmal atrial fibrillation (principal); E03.9 Hypothyroidism, unspecified; F41.9 Anxiety disorder, unspecified; F17.210 Nicotine dependence, cigarettes, uncomplicated; Z79.01 Long term (current) use of anticoagulants; Z79.890 Hormone replacement therapy; Z88.8 Allergy status to other drugs, medicaments and biological substances; Z79.899 Other long term (current) drug therapy
CPT/HCPCS: 36415; 71046; 80053; 83735; 84443; 84484; 85025; 85610; 85730; 93005; 96365; 96366; 96375; 99285

== ENCOUNTER → 2022-12-11 | Outpatient (CLI) | payer BC ==
[2022-12-11 16:44] LABS: HGB 12.8 d/dL (12.0-15.0); MCH 29.6 pg (27.0-32.0); MCHC 31.2 d/dL (32.0-37.0); MCV 94.7 FL (80.0-97.0); Mean Platelet Volume 11.5 FL (9.5-12.2); NRBC Per 100 WBC 0 X 10*3/uL (0.00-0.01); Platelet Count 239 X 10*3/uL (140-440); RBC 4.33 X 10*6/uL (4.10-5.20); RDW 12.7 % (11.5-14.5); WBC 7.95 X 10*3/uL (4.50-10.00)
[2022-12-11 16:47] LABS: Blood Urea Nitrogen 12.1 mg/dL (9.0-27.0); Chloride 105 mmol/L (96-109); Potassium 4.8 mmol/L (3.5-5.5); Sodium 139 mmol/L (135-145)
== END | disposition home or self-care (01) ==
LOC: LABPAT 10:47
PROVIDERS: ATTEND Internal Medicine Clinical Cardiac Electrophysiology
DX: Z01.812 Encounter for preprocedural laboratory examination (principal); I48.0 Paroxysmal atrial fibrillation
CPT/HCPCS: 80051; 82565; 84520; 85027

== ENCOUNTER 2022-12-18 09:55 | Day surgery (SDC) | payer BC ==
[2022-12-12 15:58] VITALS: BMI 31.8
[2022-12-18] MEDS ORDERED: SODIUM CHLORIDE 0.9% 1,000 ML IV ONE ×2 (10:01→15:24)
[2022-12-18] MEDS ORDERED: MIDAZOLAM 2 MG/2 ML VIAL IV STA (11:10)
[2022-12-18] MEDS ORDERED: HEPARIN SODIUM,PORCINE 10,000 UNIT/ML 1 ML VIAL ONE (12:13)
[2022-12-18] MEDS ORDERED: ROCURONIUM 10 MG/ML (5 ML VIAL) IV ONE (12:13)
[2022-12-18] MEDS ORDERED: PROPOFOL 10 MG/ML 20 ML VIAL IV ONE (12:13)
[2022-12-18] MEDS ORDERED: SUCCINYLCHOLINE CHLORIDE 200 MG/10 ML VIAL IV ONE (12:13)
[2022-12-18] MEDS ORDERED: ISOPROTERENOL 250 MCG/1.25 ML SYR IV ONE (12:13)
[2022-12-18] MEDS ORDERED: fentaNYL (PF) 50 MCG/ML 2 ML AMP ONE (12:13)
[2022-12-18] MEDS ORDERED: MIDAZOLAM 2 MG/2 ML VIAL ONE (12:13)
[2022-12-18] MEDS ORDERED: HYDROmorphone (PF) 1 MG/ML ONE (12:13)
[2022-12-18] MEDS ORDERED: LIDOCAINE 1% INJ 10MG/ML (20 ML MDV) SQ ONE (12:57)
[2022-12-18] MEDS ORDERED: HEPARIN SOD,PORK IN 0.45% NACL 25,000 UNIT in 0.45% NACL 1 250ML.BAG IV ONE (12:57)
[2022-12-18] MEDS ORDERED: IOPAMIDOL-370 100ML BTL INJ ONE (14:50)
[2022-12-18] MEDS ORDERED: LACTATED RINGERS 1,000 ML IV ONE (15:24)
[2022-12-18] MEDS ORDERED: ACETAMINOPHEN TAB 325 MG TAB PO PRN (15:37)
--- NOTE | 2022-12-18 15:47 | P.HPCAR ---
History of Present Illness This is Dr. Wallace dictating an H/P on this patient The patient was interviewed and examined IMPRESSION / ASSESSMENT: Paroxysmal atrial fibrillation, drug refractory despite flecainide Obesity Preserved LV systolic function, normal stress test Normal TSH PLAN: PVI for management of atrial fibrillation Continue ELIQUIS HPI Patient continues to have palpitations which are quite symptomatic. She's had palpitations since the age of 30 but in the last 5-6 years she's had very frequent episodes Patient was in atrial fibrillation she requires electrical cardioversions. During atrial fibrillation she complains of palpitations becomes very dizzy ROS: No fever chills or rigors, no cough, phlegm or expectoration, no nausea, vomiting or diarrhea, no hematuria, dysuria, no musculoskeletal complaints, no strokes or seizures, no skin lesions. EXAMINATION: 109/64 mmHg pulse rate in the 80s afebrile Breath sounds are clear no rhonchi no crackles No JVD Heart sounds S1 and S2 are normal no murmurs gallop or rub REVIEW OF LABS, ECG & MEDICAL DATA Metoprolol, levothyroxine, flecainide and ELIQUIS Physical Exam Vitals: Vital Signs Temp Pulse Resp BP Pulse Ox 12/18/22 10:12 98.8 F 80 16 109/64 96 Intake and Output 12/18/22 12/18/22 12/18/22 06:59 14:59 22:59 Intake Total 736 0 Balance 736 0 Intake: IV 736 0 Past Medical History Past Medical History: Atrial Fibrillation, Thyroid Disorder Additional Past Medical History / Comment(s): See Dr Wallace's H&P, Incisional Hernia. History of Any Multi-Drug Resistant Organisms: None Reported Past Surgical History: Hernia Repair, Hysterectomy, Tonsillectomy Additional Past Surgical History / Comment(s): Right inguinal hernia repair, Cardioversion x7,partial hysterectomy Past Anesthesia/Blood Transfusion Reactions: Postoperative Nausea & Vomiting (PONV) Additional Past Anesthesia/Blood Transfusion Reaction / Comment(s): Pt received blood with her hysterectomy- no reaction Smoking Status: Current some day smoker - Past Family History Father Family Medical History: No Reported History Additional Family Medical History / Comment(s): . Mother Family Medical History: No Reported History Additional Family Medical History / Comment(s): . Physical Examination Vital Signs Temp Pulse Resp BP Pulse Ox 12/18/22 10:12 98.8 F 80 16 109/64 96 Intake and Output 12/18/22 12/18/22 12/18/22 06:59 14:59 22:59 Intake Total 736 0 Balance 736 0 Intake: IV 736 0 Results Current Medications Generic Name Dose Route Start Last Admin Trade Name Freq PRN Reason Stop Dose Admin Acetaminophen 650 mg 12/18/22 15:37 Acetaminophen Tab 325 Mg Tab PO Q6HR PRN Mild Pain (Scale 1 to 3) Apixaban 5 mg 12/18/22 21:00 Apixaban 5 Mg Tab PO BID [facility] Protocol Flecainide Acetate 50 mg 12/18/22 21:00 Flecainide 50 Mg Tab PO Q12HR [facility] Sodium Chloride 1,000 mls @ 20 mls/hr 12/18/22 06:28 Saline 0.9% IV 01/17/23 06:29 .Q24H [facility] Acetaminophen 1,000 mg/ IV 100 mls @ 400 mls/hr 12/18/22 15:37 Solution IVPB 12/18/22 15:51 ONCE ONE Levothyroxine Sodium 75 mcg 12/19/22 09:00 Levothyroxine 75 Mcg Tab PO DAILY [facility] Metoprolol Succinate 50 mg 12/19/22 09:00 Metoprolol Succinate (Er) 25 Mg Tab.Er.24h PO DAILY [facility] Sodium Chloride 12 ml 12/18/22 15:37 Sodium Chloride 0.9% Flush 10 Ml Syringe IV Q12HR PRN Line Flush Intake and Output 12/18/22 12/18/22 12/18/22 06:59 14:59 22:59 Intake Total 736 0 Balance 736 0 Intake: IV 736 0
[2022-12-18] MEDS: SODIUM CHLORIDE 0.9% 1,000 ML IV SCH (15:58)
--- NOTE | 2022-12-18 16:21 | P.EPPROC ---
- EP Procedure Note Electrophysiology Procedure Note: PROCEDURE A. fib ablation/PVI DIAGNOSIS Atrial fibrillation, symptomatic, refractory to therapy RESULT No left atrial appendage mass seen on intracardiac echo Tortuous pulmonary veins, rotated heart Successful A. fib ablation/pulmonary vein isolation of all veins using cryo- ablation Complete entrance block in all 4 veins confirmed No evidence for phrenic nerve injury Esophageal deflection YES Atrial fibrillation induced. Mechanical stimulation from the left superior pulmonary vein Electrical cardioversion with a synchronized shock across the chest YES PROCEDURE DETAILS Written informed consent prior to procedure. Patient brought to the EP lab. General anesthesia given. Heparin administered. A city maintained above 300 seconds Both groins prepped and draped per protocol and venous sheaths placed. Esophagus intubated, circa catheter for temperature monitoring an endoscope for possible esophageal deflection. Phrenic nerve monitoring performed. Esophageal temperature monitoring performed. Esophageal deflection performed if circa catheter overlapping with the balloon or circa temperature less than 27.5C Intracardiac echocardiography performed. Pericardium evaluated. Left atrial appendage evaluated. Left atrium evaluated along with pulmonary veins Transseptal catheterization performed under fluoroscopic guidance and intracardiac echo guidance Cryoablation sheath exchanged, balloon catheter along with achieve catheter placed in the left atrium. Pulmonary veins isolated in the following sequence: Left superior pulmonary vein followed by left inferior pulmonary vein, followed by right inferior pulmonary vein and lastly right superior pulmonary vein. Phrenic nerve stimulation along with capture thresholds within the SVC and right superior pulmonary vein to identify the phrenic nerve proximity to the cryo- balloon. Pulmonary veins isolated and confirmed with entrance and exit block. Phrenic nerve integrity confirmed at the end of the procedure Electrical cardioversion performed for persistence of atrial fibrillation despite successful PVI. Diagnostic catheters for the high right atrium, His bundle, coronary sinus placed. LA and RA pressures recorded RA pressure: 16/12 LA pressure: 17/12 Diagnostic EP study with coronary sinus pacing and recording Baseline measurements: Sinus cycle length 986 ms, LA interval 148 ms, QRS 106 and QT 423 ms AH 48 and HV 54 ms Burst stimulation performed from the coronary sinus Burst stimulation performed on Isuprel high-dose No atrial fibrillation Atrial fibrillation finally induced with mechanical stimulation with the achieve catheter within the left superior pulmonary vein Venous sheaths were removed and hemostasis assured with a closure device. Patient extubated and transferred to recovery Increase procedural time During ablation multiple attempts had to be made to move the esophagus a safe distance of the from the pulmonary vein draining cryoablation, to avoid excessive thermal cooling of the esophagus This took extra time and effort to keep the esophagus a safe distance away from the cryoablation balloon. Rotated heart, very tortuous veins. Occlusion of all veins especially superior veins was difficult Multiple attempts were made all veins particularly the right superior and left superior veins to achieve good occlusion and complete isolation Complete isolation of all veins achieved. Signals in the right superior pulmonary vein were far field signals from the SVC Multiple attempts needed for successful cryoablation isolation of the pulmonary vein PROCEDURES PERFORMED Diagnostic EP study CS pacing and recording Left and right transseptal catheterization Catheter the mapping of the tachycardia Intracardiac echocardiography Pulmonary vein isolation with transseptal and comprehensive EPS, 90886 Extended procedure duration Drug infusion, +62504 Electrical cardioversion with a synchronized shock across the chest [id number]
[2022-12-18] MEDS ORDERED: ACETAMINOPHEN IV (For NPO) 1,000 MG in EMPTY BAG 1 BAG IVPB ONE (17:00)
[2022-12-18 17:15] VITALS: RESP 16
[2022-12-18] MEDS: APIXABAN 5 MG TAB PO SCH (21:44)
[2022-12-18] MEDS: FLECAINIDE 50 MG TAB PO SCH (21:44)
[2022-12-19] MEDS: SODIUM CHLORIDE 0.9% 1,000 ML IV SCH (05:44)
[2022-12-19] MEDS ORDERED: LEVOTHYROXINE 75 MCG TAB PO SCH (06:30)
[2022-12-19 07:45] VITALS: BP 109/75; PULSE 84; TEMP 98.4
--- NOTE | 2022-12-19 07:56 | P.DS ---
Providers Attending physician: Jay Wallace Primary care physician: Marty K[facility] Course: Patient is doing well. No chest discomfort mild sore throat Mild discomfort in the groins but no swelling minimal tenderness On examination, afebrile 98.4F, pulse rate in the 80s blood pressure 116/77 mmHg Normal heart sounds normal S1 normal S2 Selena lungs no rhonchi no crackles No swelling in the groins Impression Paroxysmal drug refractory atrial fibrillation, failed flecainide Status post pulmonary vein isolation Successful, complete isolation Plan Discharge home today, continue anticoagulation Follow-up with Dr. Barlow and Dr. Chaparro Continue flecainide for at least 3 months After 3 months stop flecainide and metoprolol Plan - Discharge Summary Discharge Rx Participant: No New Discharge Prescriptions: No Action Metoprolol Succinate (ER) [Toprol XL] 50 mg PO DAILY Apixaban [Eliquis Starter Pack (for VTE)] 5 mg PO BID Levothyroxine Sodium [Synthroid] 75 mcg PO DAILY Flecainide [Tambocor] 50 mg PO Q12HR Discharge Medication List Levothyroxine Sodium [Synthroid] 75 mcg PO DAILY 06/11/21 [History] Metoprolol Succinate (ER) [Toprol XL] 50 mg PO DAILY 06/13/21 [History] Apixaban [Eliquis Starter Pack (for VTE)] 5 mg PO BID 08/23/22 [History] Flecainide [Tambocor] 50 mg PO Q12HR 08/23/22 [History]
[2022-12-19] MEDS ORDERED: METOPROLOL SUCCINATE (ER) 50 MG TAB.ER.24H PO SCH (09:00)
[2022-12-19] MEDS: FLECAINIDE 50 MG TAB PO SCH (09:28)
[2022-12-19] MEDS: APIXABAN 5 MG TAB PO SCH (09:28)
== END 2022-12-19 12:14 | disposition home or self-care (01) ==
LOC: CATHEP 09:55 → 6NMEDSUR 15:14 → CATHEP 12-19 12:14
PROVIDERS: ATTEND Internal Medicine Clinical Cardiac Electrophysiology
DX: I48.0 Paroxysmal atrial fibrillation (principal); I44.2 Atrioventricular block, complete; E66.9 Obesity, unspecified; Z68.31 Body mass index [BMI] 31.0-31.9, adult; E07.9 Disorder of thyroid, unspecified; Z79.01 Long term (current) use of anticoagulants; Z98.890 Other specified postprocedural states; F17.200 Nicotine dependence, unspecified, uncomplicated; Z79.899 Other long term (current) drug therapy
CPT/HCPCS: 93656; 93623; 86900; 86901; 86850; C1894; C1769 ×3; C1760; C1730 ×2; C1759; C1893; C1733; C1766; J2250; J0330; J1644 ×2; J2001; J3010; J1170; J0131; J2704; Q9967

== ENCOUNTER 2023-06-30 08:51 | Emergency (ER) | payer BC, OTHER ==
[2023-06-30] MEDS ORDERED: DEXAMETHASONE SOD PHOSPHATE 10 MG/ML 1 ML VIAL IVP STA (09:05)
[2023-06-30] MEDS ORDERED: diphenhydrAMINE 50 MG/ML 1 ML VIAL IVP STA (09:05)
[2023-06-30] MEDS ORDERED: KETOROLAC 15 MG/ML 1 ML VIAL IVP STA ×2 (09:05→10:51)
[2023-06-30] MEDS ORDERED: SODIUM CHLORIDE 0.9% 1,000 ML IV STA (09:05)
[2023-06-30] MEDS ORDERED: METOCLOPRAMIDE 5 MG/ML 2 ML VIAL IVP STA (09:05)
--- NOTE | 2023-06-30 09:13 | ED ---
Headache HPI - General Chief Complaint: Headache Stated Complaint: headache-congestion Time Seen by Provider: 06/30/23 08:53 Source: patient, RN notes reviewed Mode of arrival: ambulatory Limitations: no limitations - History of Present Illness Initial Comments: This is a 48-year-old female who presents to the emergency department for a headache. States that this started around a week ago. This was originally thought to be a sinus headache due to the pressure and facial tenderness. She was started on azithromycin, and took her last dose yesterday. The facial tenderness has resolved, however she continues to have the headache. Denies any coughing, congestion, or other upper respiratory symptoms. Reports nausea and photophobia as well. She has tried Ibuprofen, Tylenol, ice packs, and heating pads with no relief in symptoms. She would not describe this as the worst headache of her life. MD Complaint: headache - Related Data Home Medications Medication Instructions Recorded Confirmed Levothyroxine Sodium [Synthroid] 75 mcg PO DAILY 06/11/21 12/18/22 Metoprolol Succinate (ER) [Toprol 50 mg PO DAILY 06/13/21 12/18/22 XL] Apixaban [Eliquis Starter Pack 5 mg PO BID 08/23/22 12/18/22 (for VTE)] Flecainide [Tambocor] 50 mg PO Q12HR 08/23/22 12/18/22 Previous Rx's Medication Instructions Recorded Ketorolac [Toradol] 10 mg PO Q6HR PRN #15 tab 06/30/23 Allergies Allergy/AdvReac Type Severity Reaction Status Date / Time prednisone Allergy Rash/Hives Verified 06/30/23 08:58 Review of Systems ROS Statement: Those systems with pertinent positive or pertinent negative responses have been documented in the HPI. ROS Other: All systems not noted in ROS Statement are negative. Past Medical History Past Medical History: Atrial Fibrillation, Thyroid Disorder Additional Past Medical History / Comment(s): See Dr Wallace's H&P, Incisional Hernia. History of Any Multi-Drug Resistant Organisms: None Reported Past Surgical History: Hernia Repair, Hysterectomy, Tonsillectomy Additional Past Surgical History / Comment(s): Right inguinal hernia repair, Cardioversion x7,partial hysterectomy Past Anesthesia/Blood Transfusion Reactions: Postoperative Nausea & Vomiting (PONV) Additional Past Anesthesia/Blood Transfusion Reaction / Comment(s): Pt received blood with her hysterectomy- no reaction Past Psychological History: Anxiety Smoking Status: Current every day smoker Past Alcohol Use History: Occasional Past Drug Use History: None Reported - Past Family History Father Family Medical History: No Reported History Additional Family Medical History / Comment(s): . Mother Family Medical History: No Reported History Additional Family Medical History / Comment(s): . General Exam Limitations: no limitations General appearance: alert, in no apparent distress Head exam: Present: atraumatic, normocephalic, normal inspection Eye exam: Present: normal appearance, PERRL, EOMI. Absent: scleral icterus, conjunctival injection, periorbital swelling Respiratory exam: Present: normal lung sounds bilaterally. Absent: respiratory distress, wheezes, rales, rhonchi, stridor Cardiovascular Exam: Present: regular rate, normal rhythm, normal heart sounds. Absent: systolic murmur, diastolic murmur, rubs, gallop, clicks Neurological exam: Present: alert, oriented X3, CN II-XII intact Psychiatric exam: Present: normal affect, normal mood Skin exam: Present: warm, dry, intact, normal color. Absent: rash Course Vital Signs 06/30/23 06/30/23 08:55 10:45 Temperature 98 F 97.8 F Pulse Rate 92 63 Respiratory 18 17 Rate Blood Pressure 146/102 135/90 O2 Sat by Pulse 98 98 Oximetry Medical Decision Making - Medical Decision Making This is a 48-year-old female who presents to the emergency department for a headache. Was pt. sent in by a medical professional or institution? @ -No Did you speak to anyone other than the patient for history? @ -No Did you review nursing and triage notes? @ -Yes, and I agree, it is accurate with regards to the patient's symptoms. Were old charts reviewed? @ -No Differential Diagnosis? @ -Differential Headache: Migraine, tension, cluster, carbon monoxide, central venous thrombosis, pension karma temporal arteritis, acute closure glaucoma, intercranial hemorrhage, mastoiditis, sinusitis, head injury, this is not meant to be an all-inclusive list. EKG interpreted by me (3pts min.)? @ -Not obtained X-rays interpreted by me (1pt min.)? @ -Not obtained CT interpreted by me (1pt min.)? @ -Not obtained U/S interpreted by me (1pt. min.)? @ -Not obtained What testing was considered but not performed? (CT, X-rays, U/S, labs)? Why? @ -None What meds were considered but not given? Why? @ -None Did you discuss the management of the patient with other professionals? @ -No Did you reconcile home meds? @ -No Was smoking cessation discussed for >3mins.? @ -No Was critical care preformed (if so, how long)? @ -No Were there social determinants of health that impacted care today? How? (Homelessness, low income, unemployed, alcoholism, drug addiction, transportation, low edu. Level, literacy, decrease access to med. care, long-term, rehab)? @ -No Was there de-escalation of care discussed even if they declined? (Discuss DNR or withdrawal of care, Hospice)? @ -No What co-morbidities impacted this encounter? (DM, HTN, Smoking, COPD, CAD, Cance r, CVA, Hep., AIDS, mental health diagnosis, sleep apnea, morbid obesity)? @ -None Was patient admitted / discharged? @ -Discharged. Lab work obtained and found to be unremarkable. COVID, influenza, and RSV testing were negative. Patient treated with a migraine cocktail consisting of IV fluids, Toradol, Decadron, Reglan, and Benadryl, and h ad significant relief in symptoms and felt stable for discharge home. Rx for Toradol provided with dosing instructions reviewed for any additional headaches. Advised follow up with her PCP for reevaluation as well. Undiagnosed new problem with uncertain prognosis? @ -None Drug Therapy requiring intensive monitoring for toxicity (Heparin, Nitro, Insulin, Cardizem)? @ -None Were any procedures done? @ -None Diagnosis/symptom? @ -Headache Acute, or Chronic, or Acute on Chronic? @ -Acute Uncomplicated (without systemic symptoms) or Complicated (systemic symptoms)? @ -Uncomplicated Side effects of treatment? @ -None Exacerbation, Progression, or Severe Exacerbation] @ -Not applicable Poses a threat to life or bodily function? @ -No Return precautions reviewed in depth, the patient is instructed to return to the emergency department with any new, worsening, or concerning symptoms. Patient verbalized understanding. This case was discussed in detail with the attending ED physician, Dr. Duarte. Presentation, findings, and treatment plan discussed in detail as well. - Lab Data Result diagrams: 06/30/23 09:07 06/30/23 09:07 Lab Results 06/30/23 06/30/23 06/30/23 Range/Units 09:07 09:07 09:07 WBC 9.3 (3.8-10.6) k/uL RBC 4.69 (3.80-5.40) m/uL Hgb 14.7 (11.4-16.0) gm/dL Hct 43.5 (34.0-46.0) % MCV 92.6 (80.0-100.0) fL MCH 31.2 (25.0-35.0) pg MCHC 33.7 (31.0-37.0) g/dL RDW 12.1 (11.5-15.5) % Plt Count 266 (150-450) k/uL MPV 8.2 Neutrophils % 54 % Lymphocytes % 34 % Monocytes % 4 % Eosinophils % 6 % Basophils % 1 % Neutrophils # 5.0 (1.3-7.7) k/uL Lymphocytes # 3.2 (1.0-4.8) k/uL Monocytes # 0.4 (0-1.0) k/uL Eosinophils # 0.5 (0-0.7) k/uL Basophils # 0.1 (0-0.2) k/uL Sodium 140 (137-145) mmol/L Potassium 4.3 (3.5-5.1) mmol/L Chloride 102 (98-107) mmol/L Carbon Dioxide 25 (22-30) mmol/L Anion Gap 13 mmol/L BUN 11 (7-17) mg/dL Creatinine 0.77 (0.52-1.04) mg/dL Est GFR (CKD-EPI)AfAm >90 (>60 ml/min/1.73 sqM) Est GFR (CKD-EPI)NonAf >90 (>60 ml/min/1.73 sqM) Glucose 106 H (74-99) mg/dL Calcium 9.8 (8.4-10.2) mg/dL Magnesium 1.9 (1.6-2.3) mg/dL Total Bilirubin 0.7 (0.2-1.3) mg/dL AST 25 (14-36) U/L ALT 43 H (4-34) U/L Alkaline Phosphatase 82 (38-126) U/L C-Reactive Protein <0.5 (<1.0) mg/dL Total Protein 8.1 (6.3-8.2) g/dL Albumin 4.7 (3.5-5.0) g/dL TSH 1.280 (0.465-4.680) mIU/L Influenza Type A (PCR) Not Detected (Not Detectd) Influenza Type B (PCR) Not Detected (Not Detectd) RSV (PCR) Not Detected (Not Detectd) SARS-CoV-2 (PCR) Not Detected (Not Detectd) Disposition Clinical Impression: Headache Disposition: HOME SELF-CARE Instructions (If sedation given, give patient instructions): Acute Headache (ED) Additional Instructions: Return to the emergency department with any new, worsening, or concerning symptoms. Take the Toradol with Tylenol as needed for pain relief. If you choose to take the Toradol, do not take any other anti-inflammatories such as ibuprofen, take one or the other. Follow up with your primary care provider in 1-2 days. Prescriptions: Ketorolac [Toradol] 10 mg PO Q6HR PRN #15 tab PRN Reason: Pain Is patient prescribed a controlled substance at d/c from ED?: No Referrals: Marty Chaparro MD [Primary Care Provider] - 1-2 days
[2023-06-30 09:28] LABS: Basophils # (A) 0.1 k/uL (0-0.2); Basophils % (A) 1 %; Eosinophils # (A) 0.5 k/uL (0-0.7); Eosinophils % (A) 6 %; HCT 43.5 % (34.0-46.0); HGB 14.7 gm/dL (11.4-16.0); Lymphocytes # (A) 3.2 k/uL (1.0-4.8); Lymphocytes % (A) 34 %; MCH 31.2 pg (25.0-35.0); MCHC 33.7 g/dL (31.0-37.0); MCV 92.6 fL (80.0-100.0); Mean Platelet Volume 8.2; Monocytes # (A) 0.4 k/uL (0-1.0); Monocytes % (A) 4 %; Neutrophils % (A) 54 %; Platelet Count 266 k/uL (150-450); RBC 4.69 m/uL (3.80-5.40); RDW 12.1 % (11.5-15.5); WBC 9.3 k/uL (3.8-10.6)
[2023-06-30 09:44] LABS: ALT 43 U/L (4-34); AST 25 U/L (14-36); African American GFR (CKD) >90 (>60 ml/min/1.73 sqM); Albumin 4.7 g/dL (3.5-5.0); Alkaline Phosphatase 82 U/L (38-126); Anion Gap 13 mmol/L; Blood Urea Nitrogen 11 mg/dL (7-17); Calcium 9.8 mg/dL (8.4-10.2); Carbon Dioxide 25 mmol/L (22-30); Chloride 102 mmol/L (98-107); Glucose 106 mg/dL (74-99); Magnesium 1.9 mg/dL (1.6-2.3); Non-African American GFR(CKD) >90 (>60 ml/min/1.73 sqM); Potassium 4.3 mmol/L (3.5-5.1); Sodium 140 mmol/L (137-145); Total Bilirubin 0.7 mg/dL (0.2-1.3); Total Protein 8.1 g/dL (6.3-8.2)
[2023-06-30 10:39] LABS: C Reactive Protein <0.5 mg/dL (<1.0)
[2023-06-30] MEDS ORDERED: ACET/COD 300 MG/30 MG STARTER PACK 6 TAB BTL PO STA (10:49)
[2023-06-30] MEDS ORDERED: ONDANSETRON 4 MG ODT STARTER PACK 2 TAB BTL PO STA (10:49)
[2023-06-30 11:03] VITALS: BP 135/90; PULSE 63; RESP 17; TEMP 97.8
== END 2023-06-30 11:01 | disposition home or self-care (01) ==
LOC: EC 08:51
DX: R51.9 Headache, unspecified (principal); I48.91 Unspecified atrial fibrillation; E07.9 Disorder of thyroid, unspecified; F41.9 Anxiety disorder, unspecified; F17.200 Nicotine dependence, unspecified, uncomplicated; Z79.890 Hormone replacement therapy; Z79.899 Other long term (current) drug therapy; Z20.822 Contact with and (suspected) exposure to COVID-19
CPT/HCPCS: 36415; 80053; 84443; 83735; 85025; 86140; 87636; 99284; 96374; 96375 ×3; 96376; 96361; J1200; J1100; J2765; J1885; S0119